=== PATIENT | female | born 1990 | race Caucasian/White ===

== ENCOUNTER 2020-05-08 10:31 | Outpatient (CLI) | payer OTHER, SELFPAY ==
--- NOTE | ~2020-05-08 | CT_ITS ---
EXAMINATION: CT brain wo con DATE: 05/08/2020 11:12 INDICATION: Headache and dizziness. Visual disturbances. TECHNIQUE: Computed tomography (CT) of the head was performed without intravenous contrast. The dose- length product was 605.33 mGy-cm. Automated exposure control and iterative reconstruction technique w ere employed. COMPARISON: CT dated 04/10/2018 FINDINGS: No acute intracranial hemorrhage, infarction, mass or mass effect. No ventriculomegaly or m idline shift. Basilar cisterns are patent. Paranasal sinuses and mastoids are pneumatized. No depress ed skull fractures. Normal chao-white differentiation. Midline sagittal images demonstrate a normal c orpus callosum and craniovertebral junction. IMPRESSION: 1. No acute intracranial abnormality. Reviewed, dictated and finalized at location B.
[2020-05-08 10:51] LABS: Basophils Absolute Auto 0.05 K/mm3 (0.00-0.10); Basophils Percent Auto 0.4 % (0.0-1.0); Eosinophils Absolute Auto 0.32 K/mm3 (0.02-0.50); Eosinophils Percent Auto 2.5 % (1.0-6.0); Hematocrit 39.2 % (35.0-49.0); Hemoglobin 12.9 g/dL (12.0-15.0); Immature Granulocyte Absolute 0.06 K/mm3 (0.00-0.00); Immature Granulocyte Percent A 0.5 % (0.0-0.0); Lymphocytes Absolute Auto 3.56 K/mm3 (1.10-4.50); Lymphocytes Percent Auto 27.9 % (18.0-42.0); Mean Corpuscular HGB Conc 32.9 g/dL (32.0-36.0); Mean Corpuscular Hemoglobin 30.2 pg (27.0-31.0); Mean Corpuscular Volume 91.8 fL (78.0-102.0); Mean Platelet Volume 9.9 fl (9.2-11.8); Monocytes Absolute Auto 1.56 K/mm3 (0.10-0.90); Monocytes Percent Auto 12.2 % (2.0-11.0); Neutrophils Absolute Auto 7.2 K/mm3 (1.7-7.2); Neutrophils Percent Auto 56.5 % (50.0-70.0); Platelet Count Result 410 K/mm3 (150-420); Red Blood Count 4.27 M/mm3 (4.20-5.40); Red Cell Distribution Width 13.9 % (11.6-14.4); White Blood Count 12.8 K/mm3 (4.8-10.8)
[2020-05-08 11:13] LABS: Partial Thromboplastin Time 30.1 SEC (22.3-31.6); Prothrombin Time 10.2 Seconds (9.64-11.0)
[2020-05-08 11:14] LABS: Anion Gap 10 mmol/L (8-16); Blood Urea Nitrogen 12 mg/dL (7-18); Calcium 9.3 mg/dL (8.5-10.1); Carbon Dioxide 25 mmol/L (21-32); Chloride 104 mmol/L (98-108); Estimated Glomerular Filt Rate > 60; Glucose 93 mg/dL (70-99); Osmolality Calculated 287 mOsm/kg (285-295); Potassium 4.3 mmol/L (3.5-5.1); Sodium 139 mmol/L (136-145)
[2020-05-08 12:44] LABS: Free T4 Free Thyroxine 0.82 ng/dL (0.76-1.46); Thyroid Stimulating Hormone 0.42 uIU/mL (0.36-3.74)
== END 2020-05-08 10:32 | disposition home or self-care (01) ==
PROVIDERS: PCP Family Medicine; Visit Provider Family Medicine
DX: R94.6 Abnormal results of thyroid function studies (principal); R04.0 Epistaxis; H53.451 Other localized visual field defect, right eye
CPT/HCPCS: 36415; 70450; 80048; 84439; 84443; 85025; 85610; 85730

== ENCOUNTER 2020-06-05 10:09 | Outpatient (CLI) | payer OTHER, SELFPAY ==
--- NOTE | 2020-06-05 10:35 | ECG_ITS ---
Measurements Intervals [place] Rate: 87 P: 4 OK: 153 QRS: 12 QRSD: 104 T: 8 QT: 373 QTc: 449 Interpretive Statements SINUS RHYTHM NORMAL ECG Electronically Signed On 06-05-2020 11:07:33 CDT by Hernando Kim D.O.
[2020-06-05 10:53] LABS: Cholesterol 184 mg/dL (0-200); HDL Direct 36 mg/dL (40-60); LDL Cholesterol Calculated 118 mg/dL (<130); Triglycerides 150 mg/dL (0-150)
[2020-06-05 10:55] LABS: Hemoglobin A1C 5.5 % (<5.7)
[2020-06-05 11:16] LABS: Free T4 Free Thyroxine Reflex 0.87 ng/dL (0.76-1.46); Thyroid Stimulating Hormone Reflex 0.26 u/IU/mL (0.36-3.74)
[2020-06-07 10:30] LABS: Vitamin D 25 Hydroxy 25 ng/mL (30-100)
[2020-06-10 16:07] LABS: Prealbumin 17 mg/dL (17-34)
== END 2020-06-05 10:10 | disposition home or self-care (01) ==
PROVIDERS: PCP Family Medicine
DX: J45.909 Unspecified asthma, uncomplicated (principal); E66.01 Morbid (severe) obesity due to excess calories; G47.33 Obstructive sleep apnea (adult) (pediatric); E28.2 Polycystic ovarian syndrome
CPT/HCPCS: 36415; 80061; 82306; 83036; 84134; 84439; 84443; 93005

== ENCOUNTER 2020-08-04 02:27 | Outpatient (CLI) | payer OTHER, SELFPAY ==
[2020-08-04 18:46] LABS: SARS-CoV-2 RNA PCR Negative
== END 2020-08-04 02:28 | disposition home or self-care (01) ==
LOC: ANHCOVIDDT 02:27
PROVIDERS: PCP Family Medicine; Visit Provider Internal Medicine Critical Care Medicine
DX: R68.89 Other general symptoms and signs (principal); Z20.828 Contact with and (suspected) exposure to other viral communicable diseases
CPT/HCPCS: 87635; C9803; U0003

== ENCOUNTER 2020-08-07 07:54 | Outpatient (CLI) | payer OTHER, SELFPAY ==
--- NOTE | 2020-09-13 09:15 | WPDSLEEPSTUD ---
Sleep Study Date of Study: 08/07/20 Ordering Provider: Keven Parrish MD Interpreting Physician: Maryann Dorsey MD Sleep Study Type: Polysomnogram Height: 1.8 m Weight: 132.449 kg Body Mass Index: 40.7 Ehrenberg: 4 Reason for Sleep Study Difficulty falling asleep and staying asleep Sleep History Dee Dee Saleh is a 30-year-old female with a history of difficulty falling asleep and staying asleep. She is tired on waking and is sleepy throughout the day. This is been going on for the last several months. There is no family history of a sleep difficulty. She constantly awakens at night with heartburn, belching or coughing. She does not snore and others do not tell her that she snores. She does not awaken from sleep feeling short of breath. She does not have difficulty sleeping with a cold, does not wake up gasping for breath at night, does not have breathing problems at night reported to her by others. She does not sweat excessively at night or notices her heart pounding or beating irregularly at night. She does not fall asleep during the day, fall asleep involuntarily or while driving. She does not fall asleep while exerting physical effort. She does not have loss of muscle tone was strong emotion and does not have daytime difficulties due to excessive sleepiness. She does not feel paralyzed on waking or falling asleep. She denies vivid dreamlike scenes upon awakening or falling asleep. She is not afraid to go to sleep. She does not have nightmares. She frequently remembers her dreams and frequently has racing thoughts. She really feels sad or depressed. She frequently has anxiety. She denies muscular tension. She does not notice parts of her body jerking at night and she does not kick at night. She does not have crawling and aching feelings in her legs at night and does not have leg pain at night. She denies morning jaw pain and she does not grind her teeth at night. She is not bothered by pain during the day, is not awakened by pain at night, does not wake up feeling stiff in the morning with sore or achy muscles, does not have pain in the neck and spine. She has fatigue, insomnia and headaches. She has gained weight in the last year. Normal bedtime is between 9 and 10:00 p.m. falling asleep after a while, waking up several times at night on average 5-10 minutes to urinate and get a drink of water. She wakes the morning between 6 and 7:00 a.m.. On weekends she stays awake later, going to bed between 10 and 12:00 p.m. and waking between 7 and 8:00 a.m.. She does get some recovery sleep on the weekends. She takes naps. A short nap is not refreshing. She is usually drowsy in the morning for 2 hours or longer. She feels better in the afternoon compared to the morning. Habits: Never smoked tobacco. No caffeine, alcohol or recreational drugs. [facility] Surgical History Surgical History (Updated 09/13/20 @ 09:23 by Maryann Dorsey MD) History of appendectomy History of cholecystectomy History of partial hysterectomy History of splenectomy History of tonsillectomy and adenoidectomy Family History Family History (Updated 12/03/17 @ 16:02 by DOCTOR UNKNOWN) Mother Family history of thyroid disease Family history of malignant neoplasm of cervix Sibling Diabetes mellitus Father Family history of alcoholism Social History Social History Smoking status: Former smoker Smoking end date: 08/25/13 Alcohol intake: current Medications Medications: BuSpar 300 mg daily for anxiety Pepcid 20 mg twice a day for hiatal hernia amitriptyline 100 mg at night to initiate sleep Sleep Procedure This test was performed using the [employer] multiple channel system including EOG, EEG, submental EMG, EKG, nasal and oral airflow using thermistors and nasal pressure sensors, chest and abdominal belts for body position data, and pulse oximetry. Video monitoring was also performed. The study was scored using [facility] guidelines.
[2020-09-13 10:39] VITALS: BMI 40.7
== END 2020-08-07 07:55 | disposition home or self-care (01) ==
LOC: ANHCSM 07:55
PROVIDERS: PCP Family Medicine; Visit Provider Family Medicine
DX: G47.33 Obstructive sleep apnea (adult) (pediatric) (principal)
CPT/HCPCS: 95810

== ENCOUNTER 2020-08-21 13:38 | Outpatient (CLI) | payer OTHER, SELFPAY ==
[2020-08-21 14:52] LABS: SARS-CoV-2 Ag Negative (Negative)
[2020-08-21 14:53] LABS: Influenza Control Valid (Valid)
[2020-08-22 18:44] LABS: SARS-CoV-2 RNA PCR Negative
== END 2020-08-21 13:39 | disposition home or self-care (01) ==
LOC: CHSLAB 13:41
PROVIDERS: PCP Family Medicine; Visit Provider Family Medicine
DX: R05 Cough (principal); Z20.828 Contact with and (suspected) exposure to other viral communicable diseases
CPT/HCPCS: 87426; 87635; 87804; C9803; U0003

== ENCOUNTER 2020-10-03 11:21 | Emergency (ER) | payer OTHER, SELFPAY ==
--- NOTE | ~2020-10-03 | CT_ITS ---
EXAMINATION: CT abdomen pelvis w con INDICATION: Left flank pain TECHNIQUE: Computed tomographic images of the abdomen and pelvis were obtained after the administrati on of 100 cc of Omnipaque 350 intravenous contrast. The dose-length product (DLP) was 1626.40 mGy-cm. Automated exposure control and iterative reconstruction technique were employed. COMPARISON: 05/06/2019 FINDINGS: The lung bases are clear. The heart size is normal. The gallbladder and spleen are surgical ly absent. The liver, pancreas, and adrenal glands are normal. The kidneys are unremarkable. No patho logically enlarged abdominal or pelvic lymph nodes are identified. There is no free intraperitoneal g as or evidence of bowel obstruction. There are changes of appendectomy and hysterectomy. IMPRESSION: 1. No CT correlate for the patient's symptoms. Reviewed, dictated and finalized at location A. COM ASSISTANT
--- NOTE | 2020-10-03 11:39 | ED.BACK ---
HPI - Back Pain/Injury General Chief Complaint: Back Pain/Injury Stated Complaint: Pain in back Time Seen by Provider: 10/03/20 11:39 Source: patient Mode of arrival: ambulatory Limitations: no limitations History of Present Illness HPI Narrative: A 30-year-old woman comes in today complaining of mid upper back pain and left-sided lower back pain that has been present for 2 days. Patient states that it is worse with movement. The pain is also worse when she urinates, pain with urination, and she noticed a small amount of blood in her urine today. She has a history of kidney stones and states that it feels like that. She denies nausea, vomiting, fever, abdominal pain, diarrhea, bruising or bleeding, cough or cold symptoms, chest pain or shortness of breath. MD elicited complaint: back pain Pertinent past history: kidney stones Onset (ago): day(s) (2) Timing: constant Severity: moderate Quality: dull Location: thoracic spine, left flank and left lower back Radiation: none Exacerbating factors: movement Relieving factors: other ( Urination) Associated symptoms: dysuria and hematuria Related Data Home Medications Medication Instructions Recorded Confirmed amitriptyline 100 mg PO HS 10/03/20 10/03/20 bupropion HCl 300 mg PO DAILY 10/03/20 10/03/20 calcium citrate 600 mg PO DAILY 10/03/20 10/03/20 famotidine 20 mg PO BID 10/03/20 10/03/20 [id number] carb-vit K 1 tablet PO DAILY 10/03/20 10/03/20 [Women's Multivitamin] Allergies Allergy/AdvReac Type Severity Reaction Status Date / Time dicyclomine Allergy Mild blurred Verified 05/06/19 15:58 vision, flushed, nausea adhesive tape Allergy Unknown RASH Verified 12/02/18 23:20 amoxicillin Allergy Unknown Verified 12/03/17 16:06 codeine Allergy Unknown HIVES Verified 12/02/18 23:20 doxycycline Allergy Unknown Verified 12/03/17 16:06 fentanyl Allergy Unknown Verified 12/03/17 16:07 ketorolac Allergy Unknown Verified 12/03/17 16:07 meperidine Allergy Unknown HIVES N&V Verified 12/02/18 23:20 methocarbamol Allergy Unknown HIVES, N&V Verified 04/10/19 23:20 Penicillins Allergy Unknown HIVES, N&V Verified 12/02/18 23:20 sulfamethizole Allergy Unknown Verified 12/03/17 16:07 sulfamethoxazole Allergy Unknown HIVES, N&V Verified 08/12/18 05:18 tramadol Allergy Unknown Verified 12/03/17 16:06 trimethoprim Allergy Unknown Verified 12/03/17 16:07 valdecoxib Allergy Unknown HIVES, N&V Verified 12/02/18 23:20 NSAIDS (Non-Steroidal AdvReac Intermediate UNABLE TO Verified 12/02/18 23:20 Anti-Inflamma HAVE DUE TO SPLEENECTOMY-NO NSAIDS Review of Systems Constitutional: Constitutional: Denies chills, Denies fever(s) and Denies weakness ENT: Denies nasal congestion and Denies sore throat Cardiovascular: Cardiovascular: Denies chest pain and Denies radiating jaw, neck or arm pain Respiratory: Respiratory: Denies cough and Denies dyspnea Gastrointestinal: Gastrointestinal: Reports abdominal pain, Denies diarrhea, Denies nausea and Denies vomiting Genitourinary: Genitourinary: Reports hematuria and Reports dysuria Musculoskeletal: Musculoskeletal: Reports back pain, Denies arthralgias and Denies joint swelling Integumentary/Breasts: Skin/Breast: Denies pruritus, Denies erythema and Denies rash Neurologic: Denies vertigo, Denies dizziness and Denies syncope Hematologic/Lymphatic: Hematologic/Lymphatic: Denies easy bleeding and Denies easy bruising Allergic/Immunologic: Allergic/Immunologic: Denies lip swelling and Denies throat swelling PMFSH Past Medical History Medical History Anxiety Chronic ITP (idiopathic thrombocytopenia) Depression Gastroesophageal reflux disease Polycystic ovary disease Snoring Surgical History Surgical History History of appendectomy History of cholecystectomy History of partial hysterectomy
[2020-10-03 11:44] VITALS: BP 122/85; PULSE 99; RESP 18; TEMP 36.5; O2SAT 97
[2020-10-03 12:10] LABS: Basophils Absolute Auto 0.05 K/mm3 (0.00-0.10); Basophils Percent Auto 0.4 % (0.0-1.0); Eosinophils Absolute Auto 0.29 K/mm3 (0.02-0.50); Eosinophils Percent Auto 2.4 % (1.0-6.0); Hematocrit 39.8 % (35.0-49.0); Hemoglobin 13.2 g/dL (12.0-15.0); Immature Granulocyte Absolute 0.04 K/mm3 (0.00-0.00); Immature Granulocyte Percent A 0.3 % (0.0-0.0); Lymphocytes Absolute Auto 2.88 K/mm3 (1.10-4.50); Lymphocytes Percent Auto 23.9 % (18.0-42.0); Mean Corpuscular HGB Conc 33.2 g/dL (32.0-36.0); Mean Corpuscular Hemoglobin 30.2 pg (27.0-31.0); Mean Corpuscular Volume 91.1 fL (78.0-102.0); Mean Platelet Volume 10.4 fl (9.2-11.8); Monocytes Absolute Auto 1.34 K/mm3 (0.10-0.90); Monocytes Percent Auto 11.1 % (2.0-11.0); Neutrophils Absolute Auto 7.4 K/mm3 (1.7-7.2); Neutrophils Percent Auto 61.9 % (50.0-70.0); Platelet Count Result 431 K/mm3 (150-420); Red Blood Count 4.37 M/mm3 (4.20-5.40); Red Cell Distribution Width 13.9 % (11.6-14.4)
[2020-10-03 12:13] LABS: Add Urine Microscopic? NO; Appearance Urine Clear (Clear); Bilirubin Urine Negative (Negative); Blood Urine Negative (Negative); Color Urine Yellow (Yellow); Glucose Urine UA Negative (Negative); Ketones Urine Negative (Negative); Leukocyte Esterase Ur Negative (Negative); Nitrate Urine Negative (Negative); Protein Urine Negative (Negative); Specific Grav Ur 1.025 (1.010-1.020); Urobilinogen Urine 0.2 mg/dL (0.2-1.0)
[2020-10-03 12:27] LABS: Alanine Aminotransferase 25 U/L (14-59); Albumin Level 3.7 g/dL (3.4-5.0); Alkaline Phosphatase 90 U/L (46-116); Anion Gap 13 mmol/L (8-16); Aspartate Amino Transferase 11 U/L (15-37); Bilirubin,Total 0.2 mg/dL (0.00-1.00); Blood Urea Nitrogen 20 mg/dL (7-18); CRP 1.5 mg/dL (0.0-0.9); Carbon Dioxide 24 mmol/L (21-32); Chloride 100 mmol/L (98-108); Estimated CRCL calculation 124 ml/min; Estimated Glomerular Filt Rate > 60; Glucose 101 mg/dL (70-99); Osmolality Calculated 286 mOsm/kg (285-295); Potassium 4.1 mmol/L (3.5-5.1); Sodium 137 mmol/L (136-145); Total Protein 8.1 g/dL (6.4-8.2)
[2020-10-03 12:32] LABS: Lactic Acid Reflex 1.1 mmol/L (0.4-2.0)
[2020-10-03] MEDS: ONDANSETRON INJ 4 MG/2 ML VIAL IV PUSH (13:08)
[2020-10-03] MEDS: MORPHINE SULFATE (*CRX) 2 MG/ML INJ IV PUSH ×2 (13:09→13:56)
[2020-10-03] MEDS: SODIUM CHLORIDE 0.9% IV 500 ML 999 ML IV CONT (13:10)
[2020-10-03 14:08] VITALS: BP 112/84; PULSE 95; RESP 16; O2SAT 100
== END 2020-10-03 14:10 | disposition home or self-care (01) ==
PROVIDERS: Emergency Provider Emergency Medicine; PCP Family Medicine
DX: M54.6 Pain in thoracic spine (principal); Z87.891 Personal history of nicotine dependence
CPT/HCPCS: 36415; 74177; 80053; 81003; 83605; 85025; 86140; 87040; 87086; 87088; 96361; 96374; 96375; 96376; 99283; 99284; J2270; J2405; J7040; Q9967

== ENCOUNTER 2020-11-01 12:38 | Outpatient (CLI) | payer OTHER, SELFPAY | END 2020-11-01 12:39 | disposition home or self-care (01) | PROVIDERS: PCP Family Medicine | DX: Z72.0 Tobacco use (principal) | CPT/HCPCS: 36415; 80323; G0480 ==

== ENCOUNTER 2020-11-12 10:38 | Outpatient (CLI) | payer OTHER, SELFPAY | END 2020-11-12 10:39 | disposition home or self-care (01) | PROVIDERS: PCP Family Medicine | DX: Z72.0 Tobacco use (principal) | CPT/HCPCS: 36415; 80323; G0480 ==

== ENCOUNTER 2020-12-19 10:14 | Emergency (ER) | payer OTHER, SELFPAY ==
[2020-12-19 10:20] VITALS: BP 144/88; PULSE 96; RESP 18; TEMP 36.8; O2SAT 100
--- NOTE | 2020-12-19 10:29 | ED.DENTAL ---
HPI - Dental/Oral General Chief complaint: Dental/Oral Stated complaint: tooth pain Source: patient and RN notes reviewed Mode of arrival: ambulatory Limitations: no limitations History of Present Illness MD Complaint: tooth pain Location: Tooth # (18) Onset (ago): day(s) (1) Duration: intermittent Severity: severe Relieving factors: nothing Exacerbating factors: chewing Context: history of dental caries Treatment prior to arrival: none Related Data Home Medications Medication Instructions Recorded Confirmed amitriptyline 100 mg PO HS 10/03/20 12/19/20 bupropion HCl 300 mg PO DAILY 10/03/20 12/19/20 calcium citrate 600 mg PO DAILY 10/03/20 12/19/20 famotidine 20 mg PO BID 10/03/20 12/19/20 ampicillin 500 mg PO BID 12/19/20 12/19/20 spironolactone 50 mg PO BID 12/19/20 12/19/20 tretinoin 1 applic TOPICAL DAILY 12/19/20 12/19/20 Allergies Allergy/AdvReac Type Severity Reaction Status Date / Time dicyclomine Allergy Mild blurred Verified 05/06/19 15:58 vision, flushed, nausea adhesive tape Allergy Unknown RASH Verified 12/02/18 23:20 amoxicillin Allergy Unknown Verified 12/03/17 16:06 codeine Allergy Unknown HIVES Verified 12/02/18 23:20 doxycycline Allergy Unknown Verified 12/03/17 16:06 fentanyl Allergy Unknown Verified 12/03/17 16:07 ketorolac Allergy Unknown Verified 12/03/17 16:07 meperidine Allergy Unknown HIVES N&V Verified 12/02/18 23:20 methocarbamol Allergy Unknown HIVES, N&V Verified 12/02/18 23:20 Penicillins Allergy Unknown HIVES, N&V Verified 12/02/18 23:20 sulfamethizole Allergy Unknown Verified 12/03/17 16:07 sulfamethoxazole Allergy Unknown HIVES, N&V Verified 08/12/18 05:18 tramadol Allergy Unknown Verified 12/03/17 16:06 trimethoprim Allergy Unknown Verified 12/03/17 16:07 valdecoxib Allergy Unknown HIVES, N&V Verified 12/02/18 23:20 NSAIDS (Non-Steroidal AdvReac Intermediate UNABLE TO Verified 12/02/18 23:20 Anti-Inflamma HAVE DUE TO SPLEENECTOMY-NO NSAIDS Review of Systems Review of Systems: All systems reviewed & are unremarkable except as noted in HPI and below Constitutional: Constitutional: Denies chills and Denies fever(s) PMFSH Past Medical History Medical History Anxiety Chronic ITP (idiopathic thrombocytopenia) Depression Gastroesophageal reflux disease Polycystic ovary disease Snoring Surgical History Surgical History History of appendectomy History of cholecystectomy History of partial hysterectomy History of splenectomy History of tonsillectomy and adenoidectomy Family History Family History Mother Family history of thyroid disease Family history of malignant neoplasm of cervix Sibling Diabetes mellitus Father Family history of alcoholism Social History Social History Smoking status: Former smoker Smoking end date: 08/25/13 Alcohol intake: current Exam Const: General: no acute distress and alert Nutritional Appearance: well nourished and obese Orientation/consciousness: patient oriented x3 Other: Female nurse in room during exam. HENMT: Head: normal to inspection Teeth image: 1. Swelling, tender, no fluctuance Eyes: Conjunctivae: conjunctivae normal Pupils: Equal, round and reactive pupils present EOM: EOMs intact bilaterally Neck: Neck: normal visual inspection and no lymphadenopathy Resp: Effort & Inspection: normal respiratory effort Auscultation: clear to auscultation bilaterally Cardio: Rate: regular rate Rhythm: regular rhythm GI: GI Palp: Yes Soft to palpation and No Tenderness to palpation present (GI) Auscultation: normal bowel sounds Back/Spine/Pelvis: Cervical Spine: cervical ROM normal Thoracic/Lumbar Spine: thoraco-lumbar ROM normal Neuro: General: patient oriented
[2020-12-19 10:50] VITALS: RESP 16
== END 2020-12-19 10:50 | disposition home or self-care (01) ==
PROVIDERS: Emergency Provider Emergency Medicine; PCP Family Medicine
DX: K08.89 Other specified disorders of teeth and supporting structures (principal)
CPT/HCPCS: 99283

== ENCOUNTER 2021-01-03 13:40 | Outpatient (CLI) | payer OTHER, SELFPAY ==
--- NOTE | 2021-01-03 13:55 | ECG_ITS ---
Measurements Intervals [place] Rate: 83 P: 21 SD: 124 QRS: 49 QRSD: 102 T: 40 QT: 382 QTc: 451 Interpretive Statements SINUS RHYTHM NORMAL ECG Electronically Signed On 01-03-2021 14:09:54 CDT by Hernando Kim D.O.
== END 2021-01-03 13:41 | disposition home or self-care (01) ==
LOC: CHSCARD 13:43
PROVIDERS: PCP Family Medicine
DX: Z98.84 Bariatric surgery status (principal)
CPT/HCPCS: 93005

== ENCOUNTER 2021-02-01 07:18 | Emergency (ER) | payer OTHER, SELFPAY ==
[2021-02-01 07:35] VITALS: BP 106/77; PULSE 111; RESP 16; TEMP 36.6; O2SAT 100
--- NOTE | 2021-02-01 07:58 | ED.EYEPROB ---
HPI - Eye Problem General Chief complaint: Eye Problems Stated complaint: possible chemical burn from eyelash glue Source: patient Mode of arrival: ambulatory Limitations: no limitations History of Present Illness HPI Narrative: this is a 30-year-old female presents after she had eyelashes placed bilaterally and was exposed to a chemical irritant from the eyelash glue causing bilateral conjunctival redness irritation burning, with some currently some mild blurry vision with normal visual acuity with some tearing otherwise no fever or chills. chief complaint: eye pain and eye redness Onset (ago): hour(s) Onset description: gradual Duration: constant Location: both eyes Eye Symptoms: burning, redness and pain Place: home and other Mechanism: chemical exposure Severity: moderate Related Data Home Medications Medication Instructions Recorded Confirmed amitriptyline 100 mg PO HS 10/03/20 02/01/21 bupropion HCl 300 mg PO DAILY 10/03/20 02/01/21 calcium citrate 600 mg PO DAILY 10/03/20 02/01/21 spironolactone 50 mg PO BID 12/19/20 02/01/21 omeprazole 20 mg PO DAILY 02/01/21 02/01/21 Allergies Allergy/AdvReac Type Severity Reaction Status Date / Time dicyclomine Allergy Mild blurred Verified 05/06/19 15:58 vision, flushed, nausea adhesive tape Allergy Unknown RASH Verified 12/02/18 23:20 amoxicillin Allergy Unknown Verified 12/03/17 16:06 codeine Allergy Unknown HIVES Verified 12/02/18 23:20 doxycycline Allergy Unknown Verified 12/03/17 16:06 fentanyl Allergy Unknown Verified 12/03/17 16:07 ketorolac Allergy Unknown Verified 12/03/17 16:07 meperidine Allergy Unknown HIVES N&V Verified 12/02/18 23:20 methocarbamol Allergy Unknown HIVES, N&V Verified 12/02/18 23:20 Penicillins Allergy Unknown HIVES, N&V Verified 12/02/18 23:20 sulfamethizole Allergy Unknown Verified 12/03/17 16:07 sulfamethoxazole Allergy Unknown HIVES, N&V Verified 08/12/18 05:18 tramadol Allergy Unknown Verified 12/03/17 16:06 trimethoprim Allergy Unknown Verified 12/03/17 16:07 valdecoxib Allergy Unknown HIVES, N&V Verified 12/02/18 23:20 NSAIDS (Non-Steroidal AdvReac Intermediate UNABLE TO Verified 12/02/18 23:20 Anti-Inflamma HAVE DUE TO SPLEENECTOMY-NO NSAIDS Review of Systems Review of Systems: All systems reviewed & are unremarkable except as noted in HPI and below PMFSH Past Medical History Medical History Anxiety Chronic ITP (idiopathic thrombocytopenia) Depression Gastroesophageal reflux disease Polycystic ovary disease Snoring Surgical History Surgical History History of appendectomy History of cholecystectomy History of partial hysterectomy History of splenectomy History of tonsillectomy and adenoidectomy Family History Family History Mother Family history of thyroid disease Family history of malignant neoplasm of cervix Sibling Diabetes mellitus Father Family history of alcoholism Social History Social History Smoking status: Former smoker Smoking end date: 08/25/13 Alcohol intake: current Exam Const: General: no acute distress and alert Orientation/consciousness: patient oriented x3 Eyes: Conjunctivae: conjunctivae normal ( injection here today larkin and redness) Pupils: Equal, round and reactive pupils present Direct Ophthalmoscopy: photophobia Neck: Neck: normal visual inspection, no lymphadenopathy and no meningeal signs Chest: Chest palpation & inspection: normal inspection of the chest Cardio: Rate: regular rate Rhythm: regular rhythm GI: Auscultation: normal bowel sounds : General: Yes no CVA tenderness Urinary Catheter: Urinary Catheter: patent and draining Back/Spine/Pelvis: Back: no CVA tenderness Skin: General skin exam:
[2021-02-01] MEDS: NEOMYCIN/POLYMYXIN/DEXAMETH OP SUSP 5 ML BTL 1 DROP EACH EYE (08:10)
== END 2021-02-01 08:16 | disposition home or self-care (01) ==
PROVIDERS: Emergency Provider Emergency Medicine; PCP Family Medicine
DX: H10.213 Acute toxic conjunctivitis, bilateral (principal)
CPT/HCPCS: 99282; 99283; A9270

== ENCOUNTER 2021-04-16 09:11 | Outpatient (CLI) | payer OTHER, SELFPAY ==
[2021-04-16 09:40] LABS: SARS-CoV-2 Ag Negative (Negative)
== END 2021-04-16 09:12 | disposition home or self-care (01) ==
LOC: CHSLAB 09:14
PROVIDERS: PCP Family Medicine; Visit Provider Family Medicine
DX: J00 Acute nasopharyngitis [common cold] (principal); Z20.822 Contact with and (suspected) exposure to COVID-19
CPT/HCPCS: 87426; C9803

== ENCOUNTER → 2021-04-17 09:17 | Outpatient (CLI) | payer OTHER, SELFPAY ==
[2021-04-17 19:42] LABS: SARS-CoV-2 RNA PCR Positive
== END ==
PROVIDERS: PCP Family Medicine; Visit Provider Family Medicine
DX: U07.1 COVID-19 (principal)
CPT/HCPCS: C9803; U0003; U0005

== ENCOUNTER 2021-12-04 08:20 | Outpatient (CLI) | payer OTHER, SELFPAY ==
--- NOTE | ~2021-12-04 | MR_ITS ---
EXAMINATION: MR knee RT wo con DATE: 12/04/2021 09:25 INDICATION: Right knee pain. TECHNIQUE: Magnetic resonance imaging (MRI) of the right knee was performed without intravenous contr ast. Sequences included axial PD-weighted FS FSE, coronal PD-weighted FSE and PD-weighted FS FSE, sag ittal PD-weighted FSE, and sagittal T2-weighted FS FSE. COMPARISON: None. FINDINGS: Medial compartment: Medial meniscus is normal. Medial compartment cartilage is normal. Lateral compartment: Lateral meniscus is normal. Lateral compartment cartilage is normal. Patellofemoral compartment: There is shallow partial-thickness cartilage loss of patellar lateral facet. Trochlear cartilage is n ormal. Ligaments and tendons: The anterior and posterior cruciate ligaments are normal. Medial collateral ligament and lateral crispin ateral ligament complex are normal. Patellar tendon is normal. Fluid: There is no knee joint effusion. IMPRESSION: 1. Mild patellar chondrosis. Reviewed, dictated and finalized at location A.
== END 2021-12-04 08:21 | disposition home or self-care (01) ==
LOC: CHSIMG 08:23
PROVIDERS: PCP Family Medicine; Visit Provider Family Medicine
DX: M25.561 Pain in right knee (principal)
CPT/HCPCS: 73721

== ENCOUNTER 2021-12-18 08:12 | Outpatient (CLI) | payer OTHER, SELFPAY ==
--- NOTE | ~2021-12-18 | XR_ITS ---
XR knee RT min 4V DATE: 12/18/2021 08:48 INDICATION: Bilateral knee pain TECHNIQUE: 4 views COMPARISON: 12/04/2021 MRI right knee FINDINGS: No fracture or dislocation or joint effusion. No periosteal reaction or bone destruction. J oint spaces are well preserved. No radiopaque intra-articular loose body or chondrocalcinosis. Joint spaces are well preserved. IMPRESSION: Negative Reviewed, dictated and finalized at location A. IMPRESSION: Negative
--- NOTE | ~2021-12-18 | XR_ITS ---
XR knee LT min 4V DATE: 12/18/2021 08:48 INDICATION: Bilateral knee pain TECHNIQUE: 4 views COMPARISON: None FINDINGS: No fracture or dislocation or joint effusion. No periosteal reaction or bone destruction. S light periarticular spurring of the patella. Joint spaces are well preserved. No radiopaque intra-art icular loose body or chondrocalcinosis. No periosteal reaction or bone destruction. IMPRESSION: Slight periarticular spurring of the patella consistent with slight patellofemoral osteoa rthritis Reviewed, dictated and finalized at location A. IMPRESSION: Slight periarticular spurring of the patella consistent with slight patellofemoral osteoarthritis
== END 2021-12-18 08:13 | disposition home or self-care (01) ==
LOC: CHSIMG 08:14
PROVIDERS: PCP Family Medicine; Visit Provider Orthopaedic Surgery
DX: M25.562 Pain in left knee (principal); M25.561 Pain in right knee
CPT/HCPCS: 73564

== ENCOUNTER 2022-01-14 13:39 | Outpatient (CLI) | payer OTHER, SELFPAY ==
[2022-01-14 13:55] LABS: Basophils Absolute Auto 0.05 K/mm3 (0.00-0.10); Basophils Percent Auto 0.5 % (0.0-1.0); Eosinophils Absolute Auto 0.24 K/mm3 (0.02-0.50); Eosinophils Percent Auto 2.2 % (1.0-6.0); Hematocrit 37.5 % (35.0-49.0); Hemoglobin 12.3 g/dL (12.0-15.0); Immature Granulocyte Absolute 0.03 K/mm3 (0.00-0.00); Immature Granulocyte Percent A 0.3 % (0.0-0.0); Lymphocytes Absolute Auto 2.87 K/mm3 (1.10-4.50); Lymphocytes Percent Auto 26.3 % (18.0-42.0); Mean Corpuscular HGB Conc 32.8 g/dL (32.0-36.0); Mean Corpuscular Hemoglobin 31.9 pg (27.0-31.0); Mean Corpuscular Volume 97.4 fL (78.0-102.0); Mean Platelet Volume 10.1 fl (9.2-11.8); Monocytes Absolute Auto 1.16 K/mm3 (0.10-0.90); Monocytes Percent Auto 10.6 % (2.0-11.0); Neutrophils Absolute Auto 6.6 K/mm3 (1.7-7.2); Neutrophils Percent Auto 60.1 % (50.0-70.0); Platelet Count Result 382 K/mm3 (150-420); Red Blood Count 3.85 M/mm3 (4.20-5.40); Red Cell Distribution Width 12.7 % (11.6-14.4); White Blood Count 10.9 K/mm3 (4.8-10.8)
[2022-01-14 14:37] LABS: Alanine Aminotransferase 23 U/L (14-59); Albumin Level 3.6 g/dL (3.4-5.0); Alkaline Phosphatase 116 U/L (46-116); Anion Gap 7 mmol/L (8-16); Aspartate Amino Transferase 13 U/L (15-37); Bilirubin,Total 0.2 mg/dL (0.00-1.00); Blood Urea Nitrogen 11 mg/dL (7-18); CRP < 0.5 mg/dL (0.0-0.9); Calcium 8.6 mg/dL (8.5-10.1); Carbon Dioxide 26 mmol/L (21-32); Chloride 104 mmol/L (98-108); Estimated Glomerular Filt Rate > 60; Folic Acid 6.8 ng/mL (8.6->20); Glucose 92 mg/dL (70-99); Osmolality Calculated 283 mOsm/kg (285-295); Potassium 3.5 mmol/L (3.5-5.1); Sodium 137 mmol/L (136-145); Total Protein 7.5 g/dL (6.4-8.2); Vitamin B12 245 pg/mL (193-986)
[2022-01-14 14:58] LABS: Erythrocyte Sedimentation Rate 34 mm/hr (0-15)
[2022-01-16 17:17] LABS: ANA Cascade Screen Negative (Negative)
[2022-01-17 14:59] LABS: Methylmalonic Acid 234 nmol/L (87-318)
[2022-01-21 14:55] LABS: Vitamin B2 37.1 nmol/L (6.2-39.0)
== END 2022-01-14 13:40 | disposition home or self-care (01) ==
LOC: CHSLAB 13:41
PROVIDERS: PCP Family Medicine; Visit Provider Family Medicine
DX: R21 Rash and other nonspecific skin eruption (principal); G62.9 Polyneuropathy, unspecified
CPT/HCPCS: 36415; 80053; 82607; 82746; 83921; 84252; 85025; 85652; 86038; 86140

== ENCOUNTER 2022-04-04 12:45 | Outpatient (CLI) | payer OTHER, SELFPAY ==
[2022-04-04 13:26] LABS: Strep Group A RT-PCR Negative (Negative)
[2022-04-04 13:39] LABS: Influenza A QL RT-PCR Negative (Negative); Influenza B QL RT-PCR Negative (Negative); SARS-CoV-2 RNA PCR Negative (Negative)
== END 2022-04-04 12:46 | disposition home or self-care (01) ==
LOC: CHSLAB 12:48
PROVIDERS: PCP Family Medicine; Visit Provider Family Medicine
DX: J06.9 Acute upper respiratory infection, unspecified (principal); Z20.822 Contact with and (suspected) exposure to COVID-19
CPT/HCPCS: 87502; 87651; C9803; U0003; U0005

== ENCOUNTER 2022-05-09 17:16 | Outpatient (CLI) | payer OTHER, SELFPAY ==
[2022-05-09 17:34] LABS: Appearance Urine Slightly Cloudy (Clear); Bilirubin Urine Negative (Negative); Color Urine Light Yellow (Yellow); Glucose Urine UA Negative (Negative); Ketones Urine Negative (Negative); Leukocyte Esterase Ur 3+ (Negative); Nitrate Urine Positive (Negative); Protein Urine Negative (Negative); Urobilinogen Urine 0.2 mg/dL (0.2-1.0); pH Urine 6.5 (5.0-8.0)
[2022-05-09 17:39] LABS: Add Urine Microscopic? YES; Blood Urine Trace-Intact (Negative)
[2022-05-09 17:40] LABS: Bacteria Urine 3+ /hpf; RBC Urine 0-2 /hpf (0-2); Squamous Epithelial Cell Urine Moderate /hpf (Few); WBC Urine 21-30 /hpf (0-3)
== END 2022-05-09 17:17 | disposition home or self-care (01) ==
LOC: CHSLAB 17:18
PROVIDERS: PCP Family Medicine; Visit Provider Family Medicine
DX: N39.0 Urinary tract infection, site not specified (principal)
CPT/HCPCS: 81001; 87077; 87086; 87088; 87186

== ENCOUNTER 2022-08-06 12:37 | Outpatient (CLI) | payer OTHER, SELFPAY ==
[2022-08-06 13:16] LABS: Strep Group A RT-PCR NOT DETECTED (Negative)
[2022-08-06 13:27] LABS: Influenza A QL RT-PCR Positive (Negative); Influenza B QL RT-PCR Negative (Negative); SARS-CoV-2 RNA PCR Negative (Negative)
[2022-08-06 13:29] LABS: RSV RNA, RT-PCR Negative (Negative)
== END 2022-08-06 12:38 | disposition home or self-care (01) ==
PROVIDERS: PCP Family Medicine; Visit Provider Family Medicine
DX: J06.9 Acute upper respiratory infection, unspecified (principal); Z20.822 Contact with and (suspected) exposure to COVID-19
CPT/HCPCS: 87637; 87651

== ENCOUNTER 2022-10-10 07:14 | Outpatient (CLI) | payer OTHER, SELFPAY ==
[2022-10-10 08:05] LABS: Hemoglobin A1C 5.2 % (<5.7)
[2022-10-10 08:38] LABS: Vitamin B12 482 pg/mL (193-986)
[2022-10-13 13:44] LABS: Insulin Level Total 3.6 uIU/mL (<=19.6)
== END 2022-10-10 07:15 | disposition home or self-care (01) ==
LOC: CHSLAB 07:18
PROVIDERS: PCP Family Medicine
DX: E53.8 Deficiency of other specified B group vitamins (principal); Z98.84 Bariatric surgery status; Z86.32 Personal history of gestational diabetes; R73.01 Impaired fasting glucose; E66.3 Overweight
CPT/HCPCS: 36415; 82607; 83036; 83525

== ENCOUNTER 2022-10-29 07:09 | Outpatient (CLI) | payer OTHER, SELFPAY | END 2022-10-29 07:10 | disposition home or self-care (01) | LOC: CHSIMG 07:10 | PROVIDERS: PCP Family Medicine; Visit Provider Nurse Practitioner | DX: N39.0 Urinary tract infection, site not specified (principal) | CPT/HCPCS: 99199 ==

== ENCOUNTER 2022-10-30 06:52 | Outpatient (CLI) | payer OTHER, SELFPAY | END 2022-10-30 06:53 | disposition home or self-care (01) | LOC: CHSIMG 06:53 | PROVIDERS: PCP Family Medicine; Visit Provider Nurse Practitioner | DX: N39.0 Urinary tract infection, site not specified (principal) | CPT/HCPCS: 99199 ==

== ENCOUNTER 2022-11-19 12:14 | Outpatient (CLI) | payer OTHER, SELFPAY ==
[2022-11-19 12:42] LABS: Appearance Urine Clear (Clear); Bilirubin Urine Negative (Negative); Blood Urine Trace-Intact (Negative); Glucose Urine UA Trace (Negative); Ketones Urine Negative (Negative); Leukocyte Esterase Ur Trace (Negative); Nitrate Urine Positive (Negative); Protein Urine Negative (Negative); Specific Grav Ur >= 1.030 (1.010-1.020)
[2022-11-19 12:56] LABS: Add Urine Microscopic? YES; Color Urine Dark Orange (Yellow)
[2022-11-19 12:57] LABS: Bacteria Urine 1+ /hpf; Squamous Epithelial Cell Urine Few /hpf (Few); WBC Urine 0-3 /hpf (0-3)
== END 2022-11-19 12:15 | disposition home or self-care (01) ==
LOC: CHSLAB 12:16
PROVIDERS: PCP Family Medicine; Visit Provider Nurse Practitioner
DX: R30.0 Dysuria (principal); R30.9 Painful micturition, unspecified
CPT/HCPCS: 81001; 87086

== ENCOUNTER 2022-11-25 14:12 | Outpatient (CLI) | payer OTHER, SELFPAY ==
--- NOTE | ~2022-11-25 | CT_ITS ---
EXAMINATION: CT abdomen pelvis wo/w con DATE: 11/25/2022 15:13 INDICATION: Urinary tract infection, site not specified. TECHNIQUE: Computed tomography (CT) of the abdomen and pelvis was performed without and with intraven ous contrast using a total of 130 mL Omnipaque-350 intravenous contrast with a double-bolus technique for simultaneous opacification of the renal parenchyma and renal collecting system. Automated exposu re control and iterative reconstruction technique were employed. The dose-length product was 1035.12 mGy-cm. COMPARISON: CT abdomen and pelvis 12/01/2020 FINDINGS: The visualized portions of the lung bases are clear without pneumonia or pleural effusion. There is m ild pectus excavatum. The liver is normal. There are changes of cholecystectomy. There are changes of splenectomy. There are changes of gastric bypass procedure. The pancreas and adrenal glands are norm al. There is no urolithiasis. The kidneys are normal. The ureters are not well visualized opacified d istally, but are normal. The bladder is normal. There are no dilated loops of bowel. There are change s of appendectomy. There are no pathologically enlarged lymph nodes. There is no free intraperitoneal fluid. There is mild thoracic and lumbar spondylosis. IMPRESSION: 1. Normal urinary tract. Reviewed, dictated and finalized at location A. IMPRESSION: 1. Normal urinary tract.
== END 2022-11-25 14:13 | disposition home or self-care (01) ==
LOC: ANHIMG 14:12
PROVIDERS: PCP Family Medicine; Visit Provider Nurse Practitioner
DX: N39.0 Urinary tract infection, site not specified (principal)
CPT/HCPCS: 74178; Q9967

== ENCOUNTER 2022-12-09 10:32 | Emergency (ER) | payer OTHER, SELFPAY ==
--- NOTE | ~2022-12-09 | CT_ITS ---
EXAMINATION: CT abdomen pelvis wo con DATE: 12/09/2022 11:54 INDICATION: Low back pain, difficulty urinating. Nausea and vomiting. Known kidney stone. TECHNIQUE: Computed tomography (CT) of the abdomen and pelvis was performed without intravenous contr ast. Automated exposure control and iterative reconstruction technique were employed. Exam dose: 262 .67 mGy-cm total exam DLP. COMPARISON: November 25, 2022 CT abdomen pelvis FINDINGS: The lung bases are clear. Normal heart size. No pericardial or pleural effusion. Status post cholecystectomy. Status post splenectomy. Status post gastric bypass procedure. The liver, pancreas, and adrenal glands and kidneys are unremarkable on this limited noncontrast exam ination. No urinary tract calculus or hydroureteronephrosis is detected. Normal caliber of the abdominal aorta. No intraperitoneal or retroperitoneal or pelvic mass lesion or adenopathy or ascites. Status post appendectomy. No bowel obstruction or intraperitoneal free air. Included skeletal structures are unremarkable. IMPRESSION: No urinary tract calculus or hydroureteronephrosis Status post cholecystectomy Status post splenectomy Status post gastric bypass surgery; no bowel obstruction or free air Status post appendectomy. Reviewed, dictated and finalized at [facility]. Reviewed, dictated and finalized at [facility].
[2022-12-09 10:39] VITALS: BP 122/75; PULSE 115; RESP 16; TEMP 36.8; O2SAT 100
[2022-12-09 11:26] LABS: Basophils Percent Auto 0.5 % (0.2-1.2); Eosinophils Absolute Auto 0.2 K/mm3 (0-0.3); Hematocrit 34.1 % (37.0-47.0); Hemoglobin 11.2 g/dL (12.0-15.0); Immature Granulocyte Absolute 0.02 K/mm3 (0.00-0.031); Immature Granulocyte Percent A 0.3 % (0-0.5); Lymphocytes Absolute Auto 2.31 K/mm3 (0.9-3.2); Lymphocytes Percent Auto 29.4 % (18.3-44.2); Mean Corpuscular HGB Conc 32.8 g/dl (32-36); Mean Corpuscular Hemoglobin 31.4 pg (26-34); Mean Corpuscular Volume 95.5 fl (80-100); Mean Platelet Volume 11.3 fl (7.4-10.4); Monocytes Absolute Auto 0.9 K/mm3 (0.1-0.6); Monocytes Percent Auto 10.8 % (2.6-8.5); Neutrophils Absolute Auto 4.5 K/mm3 (1.3-6.7); Platelet Count Result 281 k/mm3 (150-375); Red Blood Count 3.57 M/mm3 (4.2-5.4); Red Cell Distribution Width 12.7 % (11.5-14.5); White Blood Count 7.9 K/mm3 (4.5-10.0)
[2022-12-09 11:32] LABS: Alanine Aminotransferase 58 U/L (6-35); Albumin Level 4.3 g/dL (3.5-5.1); Alkaline Phosphatase 98 U/L (38-126); Anion Gap 9 mmol/L (8-16); Aspartate Amino Transferase 32 U/L (14-36); Bilirubin,Total 0.5 mg/dL (0.2-1.3); Blood Urea Nitrogen 8 mg/dL (7-17); Calcium 8.3 mg/dL (8.4-10.2); Carbon Dioxide 23 mmol/L (22-30); Chloride 108 mmol/L (98-107); Estimated CRCL calculation 153 ml/min; Estimated Glomerular Filt Rate > 60; Glucose 69 mg/dL (65-110); Potassium 3.1 mmol/L (3.4-5.0); Sodium 140 mmol/L (137-145)
[2022-12-09 11:40] LABS: Appearance Urine Turbid (Clear); Bacteria Urine 3+ /hpf; Bilirubin Urine Negative (Negative); Blood Urine Negative (Negative); Calcium Oxalate Crystals Urine Present /hpf; Color Urine Dark Yellow (Yellow); Glucose Urine UA Negative (Negative); Ketones Urine Negative (Negative); Leukocyte Esterase Ur Negative LEU/UL (Negative); Nitrate Urine Negative (Negative); Protein Urine Negative (Negative); Specific Grav Ur 1.034 (1.001-1.035); Squamous Epithelial Cell Urine Moderate /hpf (Few); pH Urine 5.5 (5.0-9.0)
--- NOTE | 2022-12-09 11:41 | ED.FEMALEGU ---
HPI - Female Genitourinary General Chief complaint: Urogenital-Female <Manuel Mcclain PA-C - Last Filed: 12/09/22 16:33> Stated complaint: kidney stone, back pain, difficulty urinating <Manuel Mcclain PA-C - Last Filed: 12/09/22 16:33> Time Seen by Provider: 12/09/22 10:46 <Manuel Mcclain PA-C - Last Filed: 12/09/22 16:33> History of Present Illness HPI Narrative: This is a 32-year-old female with PMH of ITP, anxiety, GERD, PCOS who presents the ED with chief complaint of right flank pain and difficulty urinating ongoing for the past week. Pain rated an 8 out of 10 and radiates into the right abdomen. Patient states that she was seen last week at another hospital and diagnosed with a kidney stone that is 6 x 2 mm. She was given Flomax and Percocets. States she has been having trouble initiating urination and Percocets have not been controlling pain. Also feels nauseous, reports 2 episodes of emesis. She called her urologist and was recommended to go to the ER. She said if she continued to have problems that her urologist mentioned doing a lithotripsy. Past abdominal surgical history of appendectomy, cholecystectomy, gastric bypass, hysterectomy, splenectomy. <Manuel Mcclain PA-C - Last Filed: 12/09/22 16:33> Related Data Home medications: Home Medications Medication Instructions Recorded Confirmed omeprazole 20 mg capsule,delayed 20 mg PO DAILY 02/01/21 02/01/21 release acetaminophen 500 mg tablet 500 mg PO Q6H PRN 01/16/22 (Tylenol Extra Strength) amitriptyline 150 mg tablet 150 mg PO QHS 01/16/22 bupropion HCl 300 mg 24 hr tablet, 150 mg PO DAILY 01/16/22 extended release <Manuel Mcclain PA-C - Last Filed: 12/09/22 16:33> Allergies/Adverse reactions: Allergies Allergy/AdvReac Type Severity Reaction Status Date / Time dicyclomine Allergy Mild blurred Verified 12/18/21 09:19 vision, flushed, nausea adhesive tape Allergy Unknown RASH Verified 12/18/21 09:19 amoxicillin Allergy Unknown Unknown Verified 12/18/21 09:19 codeine Allergy Unknown HIVES Verified 01/16/22 09:32 doxycycline Allergy Unknown Unknown Verified 12/18/21 09:19 fentanyl Allergy Unknown Unknown Verified 12/18/21 09:19 ketorolac Allergy Unknown Unknown Verified 12/18/21 09:19 meperidine Allergy Unknown HIVES N&V Verified 12/18/21 09:19 methocarbamol Allergy Unknown HIVES, N&V Verified 12/18/21 09:19 Penicillins Allergy Unknown HIVES, N&V Verified 12/18/21 09:19 sulfamethizole Allergy Unknown Unknown Verified 12/18/21 09:19 sulfamethoxazole Allergy Unknown HIVES, N&V Verified 12/18/21 09:19 tramadol Allergy Unknown Unknown Verified 12/18/21 09:19 trimethoprim Allergy Unknown Unknown Verified 12/18/21 09:19 valdecoxib Allergy Unknown HIVES, N&V Verified 12/18/21 09:19 NSAIDS (Non-Steroidal AdvReac Intermediate UNABLE TO Verified 01/16/22 09:32 Anti-Inflamma HAVE DUE TO SPLEENECTOMY-NO NSAIDS <Manuel Mcclain PA-C - Last Filed: 12/09/22 16:33> Review of Systems Review of Systems: CONSTITUTIONAL: Denies fever, chills, or sweats. EYES: Denies visual changes, redness, or discharge. ENT: Denies rhinorrhea, congestion, sore throat, or otalgia. CARDIOVASCULAR: Denies chest pain, palpitations, or edema. RESPIRATORY: Denies cough or dyspnea. GASTROINTESTINAL: See HPI GENITOURINARY: Denies dysuria or hematuria. SKIN: Denies rash or itching. MUSCULOSKELETAL: Denies back pain, joint pain, or myalgia. NEUROLOGIC: Denies headache, numbness, dizziness, or weakness. PSYCHIATRIC: Denies anxiety or depression. <Manuel Mcclain PA-C - Last Filed: 12/09/22 16:33> [facility] Past Medical History Medical History: Medical History (Updated 12/09/22 @ 13:41 by Manuel Mcclain PA-C) Anxiety Chronic ITP (idiopathic thrombocytopenia) Depression Gastroesophageal reflux disease Polycystic ovary disease Snoring <Manuel Mcclain PA-C - Last Filed: 12/09/22 16:33> Surgical History Surgical History
[2022-12-09 11:43] LABS: Add Urine Microscopic? YES
[2022-12-09] MEDS: ONDANSETRON INJ 4 MG/2 ML VIAL IV PUSH (12:02)
[2022-12-09] MEDS: SODIUM CHLORIDE 0.9% IV 1,000 ML 999 ML IV CONT (12:02)
[2022-12-09] MEDS: MORPHINE SULFATE (*CRX) 4 MG/ML INJ IV PUSH (12:08)
[2022-12-09] MEDS: METOCLOPRAMIDE HCL INJ 10 MG/2 ML VIAL IV PUSH (13:17)
[2022-12-09] MEDS: MORPHINE SULFATE (*CRX) 2 MG/ML INJ IV PUSH (13:18)
[2022-12-09 14:07] VITALS: BP 102/64; PULSE 77; RESP 16; O2SAT 100
== END 2022-12-09 14:07 | disposition home or self-care (01) ==
PROVIDERS: Emergency Provider Physician Assistant; PCP Family Medicine
DX: R10.9 Unspecified abdominal pain (principal); E28.2 Polycystic ovarian syndrome; K21.9 Gastro-esophageal reflux disease without esophagitis; D69.3 Immune thrombocytopenic purpura; F41.9 Anxiety disorder, unspecified; F32.A Depression, unspecified; Z98.84 Bariatric surgery status; Z90.49 Acquired absence of other specified parts of digestive tract; Z90.81 Acquired absence of spleen; Z90.711 Acquired absence of uterus with remaining cervical stump; Z87.891 Personal history of nicotine dependence
CPT/HCPCS: 36415; 74176; 80053; 81001; 81025; 85025; 87086; 96361; 96374; 96375; 96376; 99284; J2270; J2405; J2765; J7030

== ENCOUNTER 2023-01-08 12:54 | Outpatient (CLI) | payer OTHER, SELFPAY ==
--- NOTE | ~2023-01-08 | XR_ITS ---
XR lumbar spine 2-3V 01/08/2023 13:22 Indication: Back pain Procedure: 3 views lumbar spine Comparison: No prior studies for comparison. Findings: There is mild disc narrowing at L4-5 and L5-S1. No acute fracture, subluxation or spondylol isthesis. Normal lumbar lordosis. Mild levocurvature of the spine. Sacral foramen are symmetric. Pedi cles intact. There are cholecystectomy clips. Impression: 1: Mild lumbar spondylosis. Reviewed, dictated and finalized at [facility]. Impression: 1: Mild lumbar spondylosis.
[2023-01-08 13:17] LABS: Appearance Urine Clear (Clear); Bilirubin Urine Negative (Negative); Blood Urine Negative (Negative); Color Urine Light Yellow (Yellow); Glucose Urine UA Negative (Negative); Ketones Urine Negative (Negative); Leukocyte Esterase Ur Negative (Negative); Nitrate Urine Negative (Negative); Protein Urine Negative (Negative)
[2023-01-08 13:23] LABS: Add Urine Microscopic? NO
[2023-01-08 13:56] LABS: Influenza A QL RT-PCR Negative (Negative); Influenza B QL RT-PCR Negative (Negative); SARS-CoV-2 RNA PCR Negative (Negative)
[2023-01-08 14:01] LABS: Strep Group A RT-PCR DETECTED (Negative)
== END 2023-01-08 12:55 | disposition home or self-care (01) ==
LOC: CHSLAB 12:56
PROVIDERS: PCP Family Medicine; Visit Provider Family Medicine
DX: M54.50 Low back pain, unspecified (principal); N20.0 Calculus of kidney; M43.06 Spondylolysis, lumbar region; J02.0 Streptococcal pharyngitis
CPT/HCPCS: 72100; 81003; 87636; 87651

== ENCOUNTER 2023-01-16 13:59 | Outpatient (CLI) | payer OTHER, SELFPAY | END 2023-01-16 14:00 | disposition home or self-care (01) | LOC: CHSIMG 14:01 | PROVIDERS: PCP Family Medicine; Visit Provider Nurse Practitioner | DX: R10.9 Unspecified abdominal pain (principal) | CPT/HCPCS: 99199 ==

== ENCOUNTER 2023-01-17 12:27 | Outpatient (CLI) | payer OTHER, SELFPAY | END 2023-01-17 12:28 | disposition home or self-care (01) | PROVIDERS: PCP Family Medicine; Visit Provider Nurse Practitioner | DX: R10.9 Unspecified abdominal pain (principal) | CPT/HCPCS: 99199 ==

== ENCOUNTER 2023-01-22 12:10 | Outpatient (CLI) | payer OTHER, SELFPAY ==
--- NOTE | ~2023-01-22 | CT_ITS ---
Non-contrast CT scan of the Abdomen and Pelvis Clinical indication: Abdominal pain Technique: 2.5 mm axial scans were obtained through the abdomen and pelvis without intravenous or or al contrast. Dose reduction technique was used on this scan by utilizing automated exposure control a nd iterative reconstruction technique. The dose-length product (DLP) was 600.59 mGy-cm. COMPARISON: 12/09/2022 Findings: Images through the lung bases reveal no abnormalities. There is no evidence of renal or ureteral calculi. The kidneys and the ureters are nondilated. The liver, pancreas, and adrenals appear normal. Cholecystectomy clips are present. There is evidence of prior splenectomy. There is no aortic aneurysm. There is no evidence of bowel obstruction. There is evidence of prior bariatric surgery. Images through the pelvis were performed. There is no evidence of ascites or lymphadenopathy. Urinary bladder unremarkable. No pelvic mass seen. Impression: No acute abnormality seen. Postsurgical changes, as above. Reviewed, dictated and finalized at [facility]. Impression: No acute abnormality seen. Postsurgical changes, as above.
== END 2023-01-22 12:11 | disposition home or self-care (01) ==
LOC: CHSIMG 12:11
PROVIDERS: PCP Family Medicine; Visit Provider Nurse Practitioner
DX: R10.9 Unspecified abdominal pain (principal); Z98.890 Other specified postprocedural states
CPT/HCPCS: 74176

== ENCOUNTER 2023-03-11 07:16 | Outpatient (CLI) | payer OTHER, SELFPAY ==
[2023-03-11 07:48] LABS: Basophils Absolute Auto 0.04 K/mm3 (0.00-0.10); Basophils Percent Auto 0.5 % (0.0-1.0); Eosinophils Absolute Auto 0.18 K/mm3 (0.02-0.50); Eosinophils Percent Auto 2.3 % (1.0-6.0); Hematocrit 35.1 % (35.0-49.0); Hemoglobin 11.4 g/dL (12.0-15.0); Immature Granulocyte Absolute 0.02 K/mm3 (0.00-0.00); Immature Granulocyte Percent A 0.3 % (0.0-0.0); Lymphocytes Absolute Auto 2.25 K/mm3 (1.10-4.50); Lymphocytes Percent Auto 28.9 % (18.0-42.0); Mean Corpuscular HGB Conc 32.5 g/dL (32.0-36.0); Mean Corpuscular Hemoglobin 31.6 pg (27.0-31.0); Mean Corpuscular Volume 97.2 fL (78.0-102.0); Mean Platelet Volume 10.4 fl (9.2-11.8); Monocytes Absolute Auto 0.86 K/mm3 (0.10-0.90); Neutrophils Absolute Auto 4.4 K/mm3 (1.7-7.2); Platelet Count Result 337 K/mm3 (150-420); Red Blood Count 3.61 M/mm3 (4.20-5.40); Red Cell Distribution Width 13.3 % (11.6-14.4); White Blood Count 7.8 K/mm3 (4.8-10.8)
[2023-03-11 09:01] LABS: Alanine Aminotransferase 23 U/L (14-59); Albumin Level 3.6 g/dL (3.4-5.0); Alkaline Phosphatase 92 U/L (46-116); Anion Gap 7 mmol/L (8-16); Aspartate Amino Transferase 15 U/L (15-37); Bilirubin,Total 0.2 mg/dL (0.00-1.00); Blood Urea Nitrogen 9 mg/dL (7-18); Calcium 8.7 mg/dL (8.5-10.1); Carbon Dioxide 29 mmol/L (21-32); Chloride 106 mmol/L (98-108); Cholesterol 134 mg/dL (0-200); Estimated Glomerular Filt Rate > 60; Ferritin 16 ng/mL (8-252); Folic Acid 17.1 ng/mL (8.6->20); Glucose 84 mg/dL (70-99); HDL Direct 51 mg/dL (40-60); Iron 59 ug/dL (50-170); LDL Cholesterol Calculated 66 mg/dL (<130); Magnesium 2.1 mg/dL (1.8-2.4); Osmolality Calculated 291 mOsm/kg (285-295); Percent Iron Saturation 17 % (12-57); Potassium 3.9 mmol/L (3.5-5.1); Sodium 142 mmol/L (136-145); Total Protein 6.8 g/dL (6.4-8.2); Triglycerides 83 mg/dL (0-150); Vitamin B12 397 pg/mL (193-986)
[2023-03-13 13:05] LABS: Vitamin D 25 Hydroxy 31 ng/mL (30-100)
[2023-03-13 23:15] LABS: Methylmalonic Acid 109 nmol/L (87-318)
[2023-03-16 03:19] LABS: Vitamin B1 14 nmol/L (8-30)
== END 2023-03-11 07:17 | disposition home or self-care (01) ==
LOC: CHSLAB 07:19
PROVIDERS: PCP Family Medicine
DX: K21.9 Gastro-esophageal reflux disease without esophagitis (principal); K90.9 Intestinal malabsorption, unspecified; G47.33 Obstructive sleep apnea (adult) (pediatric); Z09 Encounter for follow-up examination after completed treatment for conditions other than malignant neoplasm; Z98.84 Bariatric surgery status; E53.8 Deficiency of other specified B group vitamins
CPT/HCPCS: 36415; 80053; 80061; 82306; 82607; 82728; 82746; 83540; 83550; 83735; 83921; 84425; 85025

== ENCOUNTER 2023-04-01 17:13 | Outpatient (CLI) | payer OTHER, SELFPAY | END 2023-04-01 17:14 | disposition home or self-care (01) | LOC: CHSLAB 17:15 | PROVIDERS: PCP Family Medicine; Visit Provider Nurse Practitioner | DX: N39.0 Urinary tract infection, site not specified (principal) | CPT/HCPCS: 87086; 87088 ==

== ENCOUNTER 2023-06-11 09:17 | Outpatient (CLI) | payer OTHER, SELFPAY ==
[2023-06-11 10:03] LABS: Influenza A QL RT-PCR Negative (Negative); Influenza B QL RT-PCR Negative (Negative); SARS-CoV-2 RNA PCR Negative (Negative)
== END 2023-06-11 09:18 | disposition home or self-care (01) ==
PROVIDERS: PCP Family Medicine; Visit Provider Family Medicine
DX: J06.9 Acute upper respiratory infection, unspecified (principal)
CPT/HCPCS: 87636

== ENCOUNTER 2023-07-15 17:14 | Outpatient (CLI) | payer OTHER, SELFPAY ==
[2023-07-15 17:31] LABS: Hematocrit 36.2 % (35.0-49.0); Hemoglobin 11.7 g/dL (12.0-15.0); Mean Corpuscular HGB Conc 32.3 g/dL (32.0-36.0); Mean Corpuscular Hemoglobin 31.9 pg (27.0-31.0); Mean Corpuscular Volume 98.6 fL (78.0-102.0); Mean Platelet Volume 10.4 fl (9.2-11.8); Platelet Count Result 322 K/mm3 (150-420); Red Blood Count 3.67 M/mm3 (4.20-5.40); Red Cell Distribution Width 13.3 % (11.6-14.4); White Blood Count 9.1 K/mm3 (4.8-10.8)
[2023-07-15 17:53] LABS: Band Neutrophils Percent 1 % (0-6); Basophils Percent Manual 0 % (0-1); Eosinophils Absolute Manual 0.09 K/mm3 (0.02-0.5); Eosinophils Percent Manual 1 % (1-6); Lymphocytes Absolute Manual 2.45 K/mm3 (1.1-4.5); Lymphocytes Percent Manual 27 % (18-44); Monocytes Absolute Manual 1.63 K/mm3 (0.1-0.90); Monocytes Percent Manual 18 % (3-9); Neutrophils Absolute Manual 4.91 K/mm3 (1.7-7.2); Neutrophils Percent Manual 53 % (46-73); Platelet Estimate Adequate (Adequate); Total Cells Counted 100
[2023-07-15 17:59] LABS: Strep Group A RT-PCR NOT DETECTED (Negative)
[2023-07-15 18:06] LABS: Influenza A QL RT-PCR Negative (Negative); Influenza B QL RT-PCR Negative (Negative); SARS-CoV-2 RNA PCR Positive (Negative)
== END 2023-07-15 17:15 | disposition home or self-care (01) ==
LOC: CHSLAB 17:16
PROVIDERS: PCP Family Medicine; Visit Provider Family Medicine
DX: D69.3 Immune thrombocytopenic purpura (principal); J06.9 Acute upper respiratory infection, unspecified
CPT/HCPCS: 36415; 85025; 87636; 87651

== ENCOUNTER 2023-11-03 13:39 | Outpatient (CLI) | payer OTHER, SELFPAY ==
[2023-11-03 14:16] LABS: Strep Group A RT-PCR NOT DETECTED (Negative)
[2023-11-03 14:28] LABS: SARS-CoV-2 RNA PCR Negative (Negative)
[2023-11-03 14:31] LABS: Influenza A QL RT-PCR Negative (Negative); Influenza B QL RT-PCR Negative (Negative)
== END 2023-11-03 13:40 | disposition home or self-care (01) ==
LOC: CHSLAB 13:41
PROVIDERS: PCP Family Medicine; Visit Provider Family Medicine
DX: J06.9 Acute upper respiratory infection, unspecified (principal)
CPT/HCPCS: 87636; 87651

== ENCOUNTER 2024-03-31 10:05 | Outpatient (CLI) | payer OTHER, SELFPAY ==
[2024-03-31 10:41] LABS: Hematocrit 36.8 % (35.0-49.0); Hemoglobin 12.5 g/dL (12.0-15.0); Mean Corpuscular Hemoglobin 31.9 pg (27.0-31.0); Mean Corpuscular Volume 93.9 fL (78.0-102.0); Mean Platelet Volume 11.1 fl (9.2-11.8); Platelet Count Result 309 K/mm3 (150-420); Red Blood Count 3.92 M/mm3 (4.20-5.40); Red Cell Distribution Width 13.1 % (11.6-14.4); White Blood Count 9.3 K/mm3 (4.8-10.8)
[2024-03-31 10:54] LABS: Band Neutrophils Percent 0 % (0-6); Eosinophils Absolute Manual 0.46 K/mm3 (0.02-0.50); Eosinophils Percent Manual 5 % (1-6); Lymphocytes Absolute Manual 3.16 K/mm3 (1.1-4.5); Lymphocytes Percent Manual 34 % (18-44); Monocytes Absolute Manual 0.65 K/mm3 (0.1-0.90); Monocytes Percent Manual 7 % (3-9); Neutrophils Absolute Manual 5.02 K/mm3 (1.7-7.2); Neutrophils Percent Manual 54 % (46-73); Platelet Estimate Adequate (Adequate); Total Cells Counted 100
[2024-03-31 11:08] LABS: Hemoglobin A1C 5.5 % (<5.7)
[2024-03-31 11:35] LABS: Alanine Aminotransferase 22 U/L (14-59); Albumin Level 3.7 g/dL (3.4-5.0); Alkaline Phosphatase 95 U/L (46-116); Anion Gap 12 mmol/L (4-12); Aspartate Amino Transferase 12 U/L (15-37); Bilirubin,Total 0.6 mg/dL (0.00-1.00); Blood Urea Nitrogen 10 mg/dL (7-18); Calcium 8.5 mg/dL (8.5-10.1); Carbon Dioxide 25 mmol/L (21-32); Chloride 105 mmol/L (98-108); Cholesterol 150 mg/dL (0-200); Estimated Glomerular Filt Rate > 60; Ferritin 20 ng/mL (8-252); Glucose 84 mg/dL (70-99); HDL Direct 58 mg/dL (40-60); Iron 158 ug/dL (50-170); LDL Cholesterol Calculated 80 mg/dL (<130); Magnesium 1.9 mg/dL (1.8-2.4); Osmolality Calculated 292 mOsm/kg (285-295); Percent Iron Saturation 44 % (12-57); Potassium 3.9 mmol/L (3.5-5.1); Sodium 142 mmol/L (136-145); Total Protein 7.3 g/dL (6.4-8.2); Triglycerides 58 mg/dL (0-150); Vitamin B12 532 pg/mL (193-986)
[2024-03-31 11:36] LABS: Folic Acid > 20.0 ng/mL (8.6->20)
[2024-04-01 23:39] LABS: Zinc 68 mcg/dL (60-130)
[2024-04-02 01:18] LABS: Vitamin D 25 Hydroxy 37 ng/mL (30-100)
[2024-04-05 10:34] LABS: Vitamin B1 17 nmol/L (8-30)
== END 2024-03-31 10:06 | disposition home or self-care (01) ==
LOC: CHSLAB 10:08
PROVIDERS: PCP Family Medicine
DX: Z00.00 Encounter for general adult medical examination without abnormal findings (principal); K21.9 Gastro-esophageal reflux disease without esophagitis; K90.9 Intestinal malabsorption, unspecified; Z98.84 Bariatric surgery status; Z86.32 Personal history of gestational diabetes
CPT/HCPCS: 36415; 80053; 80061; 82306; 82525; 82607; 82728; 82746; 83036; 83540; 83550; 83735; 84425; 84630; 85025

== ENCOUNTER 2024-12-29 15:09 | Outpatient (CLI) | payer OTHER, SELFPAY ==
--- NOTE | ~2024-12-29 | US_ITS ---
EXAM: PELVIC ULTRASOUND HISTORY: pelvic pain COMPARISON: 06/18/2018. Reference is also made to the CT examination of the abdomen and pelvis performed 01/22/2023 and dating back to 05/06/2019. FINDINGS: UTERUS: Surgically absent. RIGHT OVARY: The right ovary is unremarkable in echogenicity and size measuring 1.1 x 1.5 x 1.0 cm. Dopplerable flow is identified. LEFT OVARY: The left ovary is unremarkable in echogenicity and size measuring 1.2 x 1.6 x 1.7 cm Dopplerable flow is identified. No free fluid is identified within the pelvis. IMPRESSION: Unremarkable sonographic evaluation of the female pelvis, as detailed above. Reviewed, dictated and finalized at [facility].
== END 2024-12-29 15:10 | disposition home or self-care (01) ==
LOC: GOSHIMG 15:11
PROVIDERS: PCP Obstetrics & Gynecology; Visit Provider Obstetrics & Gynecology
DX: R10.2 Pelvic and perineal pain (principal)
CPT/HCPCS: 76830; 76856

== ENCOUNTER 2025-01-24 10:10 | Emergency (ER) | payer OTHER, SELFPAY ==
--- NOTE | ~2025-01-24 | XR_ITS ---
EXAMINATION: SACRUM/COCCYX DATE: 01/24/2025 10:48 INDICATION: Tailbone pain TECHNIQUE: Three views sacrum/coccyx FINDINGS: Lumbar spine dated 01/24/2025 There is no displaced fracture of the sacrum. The coccyx demonstrates overall normal morphology with out acute angulation.There are surgical changes in the pelvis. IMPRESSION: 1. No acute displaced osseous abnormality of the sacrum. Suspicion for occult or nondisplaced sacral fracture can either be evaluated with CT or MRI. 2. Grossly normal morphology to the coccyx without acute angulation. However, due to the wide range of normal variation of the coccyx, acute injury would be best evaluated by clinical examination and patient's symptoms. Reviewed, dictated and finalized at location A.
--- NOTE | ~2025-01-24 | XR_ITS ---
EXAMINATION: XR lumbar spine 2-3V DATE: 01/24/2025 10:48 INDICATION: Fall with tailbone pain radiating to the right leg TECHNIQUE: Anteroposterior and lateral views of the lumbar spine, and cone-down lateral view of the l umbosacral junction were obtained. COMPARISON: None. FINDINGS: Negligible lumbar levocurvature with mild rotational component. Sagittal alignment is normal. Vertebr al body heights are normal. No evident fracture. Mild disc height loss at L3-L4 and L4-L5. Mild osteo arthritis at a few of the profiled lumbar facet joints. Mild osteoarthritis of the bilateral sacral i liac joints. Sacral arches are intact. Postoperative changes in the upper abdomen with surgical clips and suture lines in the left epigastric region and additional suture line in the right upper quadran t. IMPRESSION: 1. Mild lumbar spondylosis. Reviewed, dictated and finalized at location A. IMPRESSION: 1. Mild lumbar spondylosis.
[2025-01-24 10:12] VITALS: BP 155/85; PULSE 107; RESP 16; TEMP 36.6; O2SAT 100
--- NOTE | 2025-01-24 10:14 | ED_ITS ---
HPI - Back Pain/Injury General Chief Complaint: Back Pain/Injury Stated Complaint: pain in tailbone Time Seen by Provider: 01/24/25 10:14 Source: patient Mode of arrival: ambulatory Limitations: no limitations History of Present Illness HPI Narrative: patient is a 34-year-old female with a lower back injury after a chair swing broke and she dropped 2-3 feet onto her lower buttocks and back. no other injuries. She has lower back pain from the mid lumbar to coccyx region. She is having some right lower extremity shooting pains as well. Patient has ITP and prior gastric bypass. patient had hysterectomy. MD elicited complaint: back pain and back injury Pertinent past history: other ( ITP, gastric bypass) Onset (ago): day(s) ( 1) Timing: constant Severity: moderate Pain scale (0-10): 5 Similar Symptoms Previously: No Quality: sharp Location: lumbar spine and sacrum ( down to the coccyx) Radiation: other ( Lower back to coccyx) Exacerbating factors: movement Relieving factors: immobilization Context: fall Associated symptoms: denies other symptoms Treatments prior to arrival: acetaminophen Work related injury: No Related Data Home Medications ?Medication ?Instructions ?Recorded ?Confirmed ?Last Taken ?Type omeprazole 20 mg capsule,delayed 20 mg PO DAILY 02/01/21 02/01/21 Unknown History release acetaminophen 500 mg tablet 500 mg PO Q6H PRN 01/16/22 Unknown History (Tylenol Extra Strength) amitriptyline 150 mg tablet 150 mg PO QHS 01/16/22 Unknown History bupropion HCl 300 mg 24 hr tablet, 150 mg PO DAILY 01/16/22 Unknown History extended release Allergies Allergy/AdvReac Type Severity Reaction Status Date / Time amoxicillin Allergy Severe Hives Verified 01/24/25 10:12 ketorolac Allergy Severe Hives Verified 01/24/25 10:12 dicyclomine Allergy Mild blurred Verified 01/24/25 10:12 vision, flushed, nausea adhesive tape Allergy Unknown RASH Verified 01/24/25 10:12 codeine Allergy Unknown HIVES Verified 01/24/25 10:12 doxycycline Allergy Unknown Unknown Verified 01/24/25 10:12 fentanyl Allergy Unknown Unknown Verified 01/24/25 10:12 meperidine Allergy Unknown HIVES N&V Verified 01/24/25 10:12 methocarbamol Allergy Unknown HIVES, N&V Verified 01/24/25 10:12 Penicillins Allergy Unknown HIVES, N&V Verified 01/24/25 10:12 sulfamethizole Allergy Unknown Unknown Verified 01/24/25 10:12 sulfamethoxazole Allergy Unknown HIVES, N&V Verified 01/24/25 10:12 tramadol Allergy Unknown Hives Verified 01/24/25 10:12 trimethoprim Allergy Unknown Unknown Verified 01/24/25 10:12 valdecoxib Allergy Unknown HIVES, N&V Verified 01/24/25 10:12 NSAIDS (Non-Steroidal AdvReac Intermediate UNABLE TO Verified 01/24/25 10:12 Anti-Inflamma HAVE DUE TO SPLEENECTOMY-NO NSAIDS Review of Systems Review of Systems: All systems reviewed & are unremarkable except as noted in HPI and below Constitutional: Constitutional: Reports no additional constitutional complaints Eyes: Eyes: Reports no additional eye complaints ENT: Reports system reviewed and no additional complaints, except as documented Cardiovascular: Cardiovascular: Reports no additional cardiovascular complaints Respiratory: Respiratory: Reports no additional respiratory complaints Gastrointestinal: Gastrointestinal: Reports no additional gastrointestinal complaints Genitourinary: Genitourinary: Reports no additional female genitourinary complaints Musculoskeletal: Musculoskeletal: Reports no additional musculoskeletal complaints Integumentary/Breasts: Skin/Breast: Reports system reviewed and no additional complaints, except as docu Neurologic: Reports system reviewed and no additional complaints, except as documented Psychiatric: Psychiatric: Reports no additional psychiatric complaints Endocrine: Endocrine: Reports no additional endocrine complaints Hematologic/Lymphatic: Hematologic/Lymphatic: Reports no additional hematologic/lymphatic complaints Allergic/Immunologic: Allergic/Immunologic: Reports no additional allergic/immunologic complaints [facility] Past Medical History Medical History Snoring Polycystic ovary disease Chronic ITP (idiopathic thrombocytopenia) Gastroesophageal reflux disease Anxiety Depression Surgical History Surgical History History of ear surgery Tubes in ears History of hernia surgery Nuchal hernia History of gastric bypass History of splenectomy History of tonsillectomy and adenoidectomy History of partial hysterectomy History of cholecystectomy History of appendectomy Family History Family History Mother Family history of thyroid disease Family history of malignant neoplasm of cervix Sibling Diabetes mellitus Father Family history of alcoholism Other Asthma Depression Family history of disorders of kidney and ureter Family history of high cholesterol Family history of stroke Hypertension Social History Social History Years smoked: 10 Smoking status: Former smoker Smoking end date: 08/25/11 Alcohol intake: never Occupation/Education: occupation 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 [employer] Gender identity (if verbalized by the patient): Female Exam Const: General: healthy appearing Nutritional Appearance: well nourished Orientation/consciousness: patient oriented x3 HENMT: Head: normal to inspection Ears: external ears normal Face/Nose/Sinus: Normal external nose present Eyes: Conjunctivae: conjunctivae normal Pupils: Equal, round and reactive pupils present EOM: EOMs intact bilaterally Neck: Neck: normal visual inspection Chest: Chest palpation & inspection: normal inspection of the chest Resp: Effort & Inspection: normal respiratory effort and not labored Auscultation: clear to auscultation bilaterally and no crackles Cardio: Rate: regular rate Rhythm: regular rhythm Heart sounds: no murmurs GI: Inspection: non-distended GI Palp: Yes Soft to palpation and No Tenderness to palpation present (GI) Auscultation: normal bowel sounds : General: Yes bladder normal to palpation Back/Spine/Pelvis: Back: no CVA tenderness Other: tender lumbar spine all the way down to the coccyx Skin: General skin exam: normal color Rashes: no rashes Wounds: no wounds Neuro: General: patient oriented x3, moves all extremities, no meningeal signs, no focal motor deficits and CN's II-XI intact bilaterally Cranial nerves: Yes Nystagmus not present Speech: normal speech Gait exam (Neuro): Normal gait present Other: equivocal sciatica on the right lower extremity Course Vital Signs Vital signs: Vital Signs Temperature 36.6 C 01/24/25 10:12 Pulse Rate 107 H 01/24/25 10:12 Respiratory Rate 16 01/24/25 10:12 Blood Pressure 155/85 H 01/24/25 10:12 Pulse Oximetry 100 01/24/25 10:12 Oxygen Delivery Room Air 01/24/25 10:12 Temperature 36.6 C 01/24/25 10:12 Pulse Rate 107 H 01/24/25 10:12 Respiratory Rate 16 01/24/25 10:12 Blood Pressure 155/85 H 01/24/25 10:12 Pulse Oximetry 100 01/24/25 10:12 Oxygen Delivery Room Air 01/24/25 10:12 MDM - Back Pain/Injury MDM Narrative Medical decision making narrative: patient is a 34-year-old female with a 2-3 foot fall onto her lower back and spine with significant pain. Will start with x-rays at this time. She can take hydrocodone with her allergy list. She can take prednisone with her allergy list. Imaging Data Attestation: I personally reviewed and interpreted this imaging study as foll ows: Radiologist's impression: Lumbar spine x-ray was negative for acute process sacrum x-ray was negative for acute process coccyx x-ray was negative for acute process Discharge Plan Discharge Clinical Impression: Fall, Lumbosacral radiculopathy Patient Disposition: Home Condition: Stable Instructions: Lumbar Radiculopathy (ED) Patient Language: Mexican Prescriptions: New prednisone 20 mg tablet 40 mg PO DAILY 4 Days Qty: 8 0RF hydrocodone-acetaminophen 5-325 mg tablet 1 tablet PO Q8H PRN (Reason: pain) Qty: 20 0RF Rx Instructions: 1-2 tabs per dose No Action bupropion HCl 300 mg tablet extended release 24 hr 150 mg PO DAILY omeprazole 20 mg capsule,delayed release(DR/EC) 20 mg PO DAILY acetaminophen [Tylenol Extra Strength] 500 mg tablet 500 mg PO Q6H PRN amitriptyline 150 mg tablet 150 mg PO QHS ondansetron 4 mg tablet,disintegrating 4 mg PO Q8H PRN (Reason: nausea and vomiting) Qty: 10 0RF Follow-up/Referrals: Keven Parrish MD [Primary Care Provider] - Time of Disposition: 11:30
--- OUTSIDE RECORDS SUMMARY | 2025-01-24 10:52 | XMS_ITS | Encounter Summary ---
Author Organization [facility] Address [address] [place] [address] Care Team Providers Care Machine Buffer Name Role Phone Melquiades Gates MD Primary Care Provider [phone] Keven Parrish MD Primary Care Provider Encounter Details Date Type Department Care Team (Late st Contact Info) Description 05/08/2020 [facility] [address] [place] [address] Annette Hall DO [address] [place] [address] Social History Tobacco Use Types Packs/Day Years Used Date Smoking Tobacco: Former Cigarettes Q uit: 2012 Smokeless Tobacco: Never Alcohol Use Standard Drinks/Week Comments No 0 (1 standard drink = 0.6 oz pur e alcohol) Comments No Sex and Gender Information Value Date Recorded Sex Assigned at Not on file 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 Answer Date of Assessment Author No 05/21/2019 1:01 PM Ronda Cota RN * Is person blind or have serious difficulty seeing? Answer Date of Assessment Author No 05/21/2019 1:01 PM Ronda Cota RN * Does person have serious difficulty walking/climbing stairs? Answer Date of Assessment Author No 05/21/2019 1:01 PM Ronda Cota RN * Does person have difficulty dressing/bathing? Answer Date of Assessment Author No 05/21/2019 1:01 PM CDT Ronda Atwood RN * Does person have difficulty doing errands alone? Answer Date of Assessment Author No 05/21/2019 1:01 PM CDT Ronda Atwood RN documented as of this encounter Mental Status * Does person have difficulty concentrating/remembering/making decisions? Answer Entry Date Author No 05/21/2019 1:01 PM CDT Ronda Atwood RN documented in this encounter Miscellaneous Notes * Telephone Encounter - Annette Hall DO - 05/08/2020 8:03 PM CDT Just a call from Ms. Saleh who reports she has been having nose bleeds for the last 3 days. She reports they last as long as 20 min or more and she is unable to stop it. She also started having severe VASQUEZ today She was seen by PCP who sent her to get labs drawn and CTH. She does not know the results of the CBC. She was told her CTH OK. I instructed the pt to go the Emergency room immediately. Marie Hall DO Hematology/Onclogy fellow documented in this encounter Plan of Treatment Not on file documented as of this encounter Visit Diagnoses Not on filedocumented in this encounter Care Teams Machine Buffer Relationship Specialty Start Date End Date Melquiades Gates MD [address] [place] [phone] PCP - General 03/01/19 08/09/20 Keven Parrish MD [address] [place] [phone] PCP - General 08/10/20 documented as of this encounter
--- OUTSIDE RECORDS SUMMARY | 2025-01-24 10:52 | XMS_ITS | Clinical Summary ---
Author Organization [facility] Address [address] [place] [address] Phone Care Team Providers Care Yarrow Gatherer Name Role Phone Jennifer Resendiz APRN, SADIE Primary Care Provider Unavailable Social History Tobacco Use Types Packs/Day Years Used Date Smoking Tobacco: Never Assessed Comments Unknown Sex and Gender Information Value Date Recorded Sex Assigned at Not on file Legal Sex Female 10:18 AM CDT Gender Identity Not on file Sexual Orientation Not on file Plan of Treatment Health Maintenance Due Date Last Done Comments Hepatitis C Virus (HCV) Screening 1992 Hepatitis B Immunization (1 of 3 - 19+ 3-dose series) 2011 Pap Smear 2013 Cervical Cancer Screening (CCS) 2022 HPV/Cotest 2022 Influenza Immunization (#1) 2024 06/07/2017 SARS-COV-2 Immunization ( season) 2024 12/08/2020, 11/10/2020 Respiratory Syncytial Virus (RSV) Immunization (Adult) (1 - 1-dose 75+ series) 2067 DTaP/Tdap/Td Immunization Discontinued 06/06/2017 TdaP Immunization Completed 06/06/2017 Meningococcal Immunization (ACWY) Aged Out 09/10/2017 No longer eligible based on patient's age to complete this topic Pneumococcal Immunization Combined Aged Out 09/10/2017 No longer eligible based on patient's age to complete this topic Rotavirus Immunization Aged Out No lo nger eligible based on patient's age to complete this topic Insurance MEDICAID [id number] Care Teams Yarrow Gatherer Relationship Specialty Start Date End Date Jennifer Resendiz APRN, SADIE PCP - General Certified Nurse Research Interviewer 11/25/16
--- OUTSIDE RECORDS SUMMARY | 2025-01-24 10:52 | XMS_ITS | Clinical Summary ---
Author Organization [facility] Address [address] [place] [id number] Care Team Providers Care Applications Consultant Name Role Phone Melquiades Gates MD Primary Care Provider [phone] Allergies Active Allergy Reactions Criticality Noted Date Comments Adhesive Other (See comments) Low 10/31/2023 Reaction: Amoxicillin Clavulanic Acid Rash Medium 06/10/2016 Codeine Dicyclomine Dizziness Low 05/07/2019 Lost my vision Doxycycline Fentanyl Hydrocodone-Acetaminophen Other (See comments) Low 10/31/2023 Reaction: Ketorolac Methocarbamol Hives Medium 01/29/2016 Morphine Nsaids (Non-Steroidal Anti-Inflammatory Drug) GI bleeding 12/22/2022 Sulfamethoxazole-Trimetho prim Terbutaline Hives Medium 11/15/2011 Hives Tramadol Valdecoxib Medications acetaminophen (TYLENOL) 325 mg tablet Take 1 tablet (325 mg total) by mouth every 4 (four) hours as needed Active albuterol HFA (PROVENTIL HFA,VENTOLIN HFA,PROAIR HFA) 90 mcg/actuation inhaler Inhale 2 puffs every 6 (six) hours as needed Active amitriptyline (ELAVIL) 100 mg tablet Take 1 tablet (100 mg total) by mouth nightly at bedtime. 4 Active ampicillin (PRINCIPEN) 500 mg capsule Take 1 capsule (500 mg total) by mouth 2 (two) times a day 1 Active ascorbic acid 500 mg tablet,chewable Take 1 tablet/chew tab (500 mg total) by mouth daily Active benzonatate (TESSALON) 100 mg capsule TAKE 1 TO 2 CAPSULES BY MOUTH EVERY 8 HOURS FOR 5 DAYS NEEDED FOR COUGH 4 Active buPROPion (WELLBUTRIN) 100 mg tablet Take 1 tablet (100 mg total) by mouth 3 (three) times a day 4 Active buPROPion SR (WELLBUTRIN SR) 150 mg 12 hr tablet Take 100 mg by mouth 3 (three) times a day Active buPROPion XL (WELLBUTRIN XL) 300 mg 24 hr tablet Take 1 tablet (300 mg total) by mouth daily 1 Active busPIRone (BUSPAR) 15 mg tablet Take 2 tablets (30 mg total) by mouth 2 (two) times a day 9 Active calcium carbonate (TUMS) 500 mg (200 mg elemental calcium) chewable tablet Take 1 tablet/chew tab (500 mg total) by mouth daily Active cholecalciferol 25 mcg (1,000 unit) tablet Take 1 tablet (1,000 Units total) by mouth daily Active clindamycin (CLEOCIN) 300 mg capsule Take 1 capsule (300 mg total) by mouth 2 (two) times a day 1 Active cyclobenzaprine (FLEXERIL) 10 mg tablet 4 Active dexAMETHasone (DECADRON) 2 mg tablet TAKE 5 TABLET BY MOUTH A ONE TIME DOSE 4 Active diphenhydrAMINE (BENADRYL) 50 mg capsule Take 1 capsule (50 mg total) by mouth nightly Active escitalopram (LEXAPRO) 20 mg tablet Take 1 tablet (20 mg total) by mouth daily Active famotidine (PEPCID) 20 mg tablet Take 1 tablet (20 mg total) by mouth 2 (two) times a day 9 Active ferrous sulfate 325 mg (65 mg of elemental iron) tablet Take 1 tablet (325 mg total) by mouth daily Active gabapentin (NEURONTIN) 300 mg capsule Take 1 capsule (300 mg total) by mouth 3 (three) times a day 1 Active HYDROcodone-rachel taminophen (NORCO) 5-325 mg per tablet Take 1-2 tablets by mouth every 6 (six) hours as needed 4 Active Lactobacillus rhamnosus GG (CULTURELLE) 10 billion cell capsule Take 1 capsule by mouth daily Active Linzess 145 mcg capsule PLEASE SEE ATTACHED FOR DETAILED DIRECTIONS 4 Active methen-m.blue-s .rjjs-dsypf-der (UribeL) 118-10-40.8-36 mg capsule Take 118 mg by mouth every 8 (eight) hours as needed Active multivit mzlgcmou-qkxc-W A-calcium (THERA-M) 9 mg iron-400 mcg tablet Take 1 tablet by mouth daily Active omeprazole (PriLOSEC) 40 mg capsule TAKE 1 CAPSULE BY MOUTH TWICE A DAY BEFORE A MEAL 4 Active ondansetron (ZOFRAN) 4 mg tablet TAKE 1 TABLET BY MOUTH EVERY 4 TO 6 HOURS NEEDED FOR NAUSEA - MAX 6 TABLETS/DAY 4 Active phentermine (ADIPEX-P) 37.5 mg tablet TAKE 1/2 TABLET BEFORE BREAKFAST AND 1/2TAB BEFORE LUNCH DAILY 4 Active spironolactone (ALDACTONE) 100 mg tablet Take 1 tablet (100 mg total) by mouth daily 1 Active sucralfate (CARAFATE) 1 gram tablet TAKE 1 TABLET DISSOVLED IN 2-3 OZ WATER BY MOUTH 4 TIMES DAILY - BEFORE MEALS AND AT BEDTIME 4 Active topiramate (TOPAMAX) 25 mg tablet Take 1 tablet (25 mg total) by mouth 2 (two) times a day 3 Active tretinoin (RETIN-A) 0.025 % cream Pea sized amount to entire face at night. 30 days supply. 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 Hydronephrosis with urinary obstruction due to renal calculus 12/21/2022 Overview (10/31/2023): Added automatically from request for surgery [id number] Obstructive uropathy 12/21/2022 Right flank pain 12/21/2022 Overview (10/31/2023): Added automatically from request for surgery [id number] Right ureteral stone 12/21/2022 Overview (10/31/2023): Added automatically from request for surgery [id number] Acne vulgaris 10/31/2020 Overview (10/31/2023): Last Assessment & Plan: -mixed, flaring -s/p hysterectomy -start spironolactone 100 mg daily, discussed SE urination, spotting, breast tenderness, harm -start BP wash, samples provide -start clindamycin 300 mg BID discussed SE diarrhea (patient allergic to penicillins and doxycycline) -start tretinoin 0.025% cr nightly to face, stop if waxing 2 weeks prior Rash and other nonspecific skin eruption 019 Chronic ITP (idiopathic thrombocytopenia) 2016 Obesity (BMI 35.0-39.9 without comorbidity) 12/25 Bleeding gastrointestinal 07/25/2015 Gastroparesis 06/23/2015 Abdominal pain 04/25/2015 Family History Medical History Relation Name Comments Anxiety disorder Brother Anxiety - ( Added by TW Conv) Depression Brother Family history of depression - (Added by TW Conv) Anxiety disorder Father Anxiety - ( Added by TW Conv) Depression Father Family history of depression - (Added by TW Conv) Hypertension Father Family history of hypertension - (Added by TW Conv) Anxiety disorder Mother Anxiety - ( Added by TW Conv) Cervical cancer Mother Family histo ry of malignant neoplasm of cervix - (Added by TW Conv) Depression Mother Family history of depression - (Added by TW Conv) Anxiety disorder Sister Anxiety - ( Added by TW Conv) Depression Sister Family history of depression - (Added by TW Conv) Relation Name Status Comments Brother Father Mother Sister Social History Tobacco Use Types Packs/Day Years Used Date Smoking Tobacco: Former Comments Unknown Sex and Gender Information Value Date Recorded Sex Assigned at Not on file Legal Sex Female 9:17 PM PROTECTIVE SERVICES CASE WORKER Gender Identity Not on file Sexual Orientation Not on file Obstetrics History Last Filed Vital Signs Vital Sign Reading Time Taken Comments Blood Pressure 120/72 10/31/2023 3:33 PM PROTECTIVE SERVICES CASE WORKER Pulse 86 10/31/2023 3:33 PM PROTECTIVE SERVICES CASE WORKER Temperature 36.8 C (98.3 F) 10/31/2023 3:33 PM PROTECTIVE SERVICES CASE WORKER Respiratory Rate 16 10/31/2023 3:33 PM PROTECTIVE SERVICES CASE WORKER Oxygen Saturation 99% 10/31/2023 3:33 PM PROTECTIVE SERVICES CASE WORKER Inhaled Oxygen Concentration - - Weight 88.5 kg (195 lb) 10/31/2023 3:33 PM PROTECTIVE SERVICES CASE WORKER Height 180.3 cm (5' 11) 10/31/2023 3:33 PM PROTECTIVE SERVICES CASE WORKER Body Mass Index 27.2 10/31/2023 3:33 PM PROTECTIVE SERVICES CASE WORKER Plan of Treatment Health Maintenance Due Date Last Done Comments Cervical Cancer Screening 1992 Depression Screening 1992 Hepatitis C Screening 1992 Meningococcal B Vaccine (1 of 5 - Increased Risk) 2002 Varicella Vaccines (1 of 2 - 13+ 2-dose series) 2005 Hepatitis B Screening 2010 Regular Well Visit/Exam 18-64 2010 Covid-19 Vaccine ( - season) 2024 12/08/2020, 11/10/2020 Influenza Vaccine (Season Ended) 2025 05/22/2019, 10/07/2018, 06/07/2017, Additional history exists DTaP/Tdap/Td Vaccine (2 - Td or Tdap) 06/06/2027 06/06/2017 Pneumococcal vaccine <65 (4 of 4 - PCV20 or PCV21) 2042 09/10/2017, 09/08/2015, 09/08/2015 HPV Vaccines Aged Out No longer eligi ble based on patient's age to complete this topic Insurance [facility] [address] [place] [address] [place] [address] Care Teams Applications Consultant Relationship Specialty Start Date End Date Melquiades Gates MD PCP - General Family Medicine 10/29/19
--- OUTSIDE RECORDS SUMMARY | 2025-01-24 10:52 | XMS_ITS | Referral Summary ---
Author Organization [facility] Address [address] [place] [id number] Care Team Providers Care Conductor Orchestra Name Role Phone Melquiades Gates MD Primary Care Provider [phone] Allergies Active Allergy Reactions Criticality Noted Date [...] ATTACHED FOR DETAILED DIRECTIONS 4 Active methen-m.blue-s .piav-csftm-lpg (UribeL) 118-10-40.8-36 mg capsule Take 118 mg by mouth every 8 (eight) hours as needed Active multivit cnnqqlon-kmcw-P A-calcium (THERA-M) 9 mg iron-400 mcg tablet [...] (10/31/2023): Added automatically from request for surgery [id number] Obstructive uropathy 12/21/2022 Right flank pain 12/21/2022 Overview (10/31/2023): Added automatically from request for surgery [id number] Right ureteral stone 12/21/2022 Overview (10/31/2023): Added automatically from request for surgery [id number] Acne vulgaris 10/31/2020 Overview (10/31/2023): Last Assessment [...] gastrointestinal 07/25/2015 Gastroparesis 06/23/2015 Abdominal pain 04/25/2015 Social History Tobacco Use Types Packs/Day Years Used Date Smoking Tobacco: Former Comments Unknown Sex and Gender Information Value Date Recorded Sex Assigned at Not on file Legal Sex Female 9:17 PM BARREL LOADER Gender Identity Not on file Sexual Orientation Not on file Last Filed Vital Signs Vital Sign Reading Time Taken Comments Blood Pressure 120/72 10/31/2023 3:33 PM BARREL LOADER Pulse 86 10/31/2023 3:33 PM BARREL LOADER Temperature 36.8 C (98.3 F) 10/31/2023 3:33 PM BARREL LOADER Respiratory Rate 16 10/31/2023 3:33 PM BARREL LOADER Oxygen Saturation 99% 10/31/2023 3:33 PM BARREL LOADER Inhaled Oxygen Concentration - - Weight 88.5 kg (195 lb) 10/31/2023 3:33 PM BARREL LOADER Height 180.3 cm (5' 11) 10/31/2023 3:33 PM BARREL LOADER Body Mass Index 27.2 10/31/2023 3:33 PM BARREL LOADER Plan of Treatment Not on file Insurance [facility] Member Subscriber Plan / Payer (Ef fective 2017-Present) Name:Dee Dee Saleh Relation to Subscriber:Self Name:Dee Dee Saleh Payer ID:[id number] (NAIC) Group ID:Not on file Type:MEDICAID RISK OTHER Address: [address] [facility] Care Teams Conductor Orchestra Relationship Specialty Start Date End Date Melquiades Gates MD PCP - General Family Medicine 10/29/19
--- OUTSIDE RECORDS SUMMARY | 2025-01-24 10:52 | XMS_ITS | Clinical Summary ---
Author Organization [facility] Address [address] [place] [address] Care Team Providers Care Mechanical Maintenance Foreman Name Role Phone Keven Parrish MD Primary Care Provider [phone] Source Comments [facility],non-owned Affiliates and Associated Physician Practices is amultiple site organization consisting of ambulatory clinics and hospital sitesin [place], [place], [place] and [place]. This disclosure is being madepursuant to the Care Everywhere program and may not contain all information available regarding this patient. Last updated 18.[facility] Allergies Active Allergy Reactions Criticality Noted Date Comments Amoxicillin Rash Medium 01/22/2017 Sulfamethoxazole W-Trimethoprim Rash Medium 01/22/2017 Dicyclomine Vision Changes 05/07/2019 Valdecoxib Rash Medium 01/22/2017 Clavulanic Acid Rash Medium 06/10/2016 Codeine Nausea and/or Vomiting 10/06/2018 Doxycycline Unknown 01/29/2016 Fentanyl Rash Medium 01/22/2017 Pt states she is not allergic Methocarbamol Urticaria Medium 01/29/2016 Nsaids Other 05/07/2019 ITP Terbutaline Rash Medium 01/22/2017 Ketorolac Rash Medium 01/22/2017 Tramadol Rash Medium 01/22/2017 Medications * Be aware that medications may not be up to date on this document. Alwaysverify current medications with the patient. venlafaxine XR 24hr (EFFEXOR XR) 150 MG capsule Take 150 mg by mouth daily with breakfast Active busPIRone (BUSPAR) 15 MG tablet Take 30 mg by mouth 2 times daily 9 Active diphenhydrAMIN E HCl, Sleep, (UNISOM SLEEPGELS) 50 MG Take 1 capsule by mouth at bedtime Active Meth-Hyo-M Bl-Na Phos-Ph Erik (URIBEL) 118 MG Take 118 mg by mouth every 8 hours as needed Active albuterol HFA (VENTOLIN HFA) 8 gram inhaler Inhale 2 puffs by mouth every 6 hours as needed Active acetaminophen (TYLENOL) 325 MG tablet Take 325 mg by mouth every 4 hours as needed for Fever or Pain Maximum allowable Acetaminophen amount = 4 Grams (4000 mg) / 24 hours. Active famotidine (PEPCID) 20 MG tablet Take 1 tablet by mouth 2 times daily 14 tablet 9 Active AMITRIPTYLINE HCL PO Take 100 mg by mouth at bedtime Active HYDROXYZINE HCL PO Active escitalopram (LEXAPRO) 20 MG tablet Take 20 mg by mouth once daily Active gabapentin (NEURONTIN) 300 MG capsule Take 1 (one) capsule by mouth 3 times daily 25 capsule 1 Active Additional Information Patient not taking.Reported on 10/31/2020 ibuprofen (MOTRIN) 600 MG tablet Take 1 (one) tablet by mouth every 6 hours as needed for Pain 30 tablet 1 Active Additional Information Patient not taking.Reported on 10/31/2020 buPROPion XL 24hr (WELLBUTRIN-XL ) 300 MG tablet Take 1 tablet by mouth once daily 1 Active MULTIPLE VITAMIN PO Take 1 tablet by mouth once daily Active CALCIUM CITRATE PO Take 1 tablet by mouth once daily Active spironolactone (ALDACTONE) 100 MG tabletIndicati ons:Acne vulgaris Take 1 (one) tablet by mouth once daily 30 tablet 4 1 Active clindamycin (CLEOCIN) 300 MG capsuleIndicat ions:Acne vulgaris Take 1 (one) capsule by mouth 2 times daily 60 capsule 2 1 Active tretinoin (RETIN-A) 0.025 % creamIndicatio ns:Acne vulgaris Pea sized amount to entire face at night. 30 days supply. 20 g 5 1 Active ampicillin (PRINCIPEN) 500 MG capsuleIndicat ions:Acne vulgaris Take 1 (one) capsule by mouth 2 times daily 60 capsule 2 1 Active Active Problems Problem Noted Date Diagnosed Date Acne vulgaris 10/31/2020 Assessment & Plan (10/31/2020 1:30 PM RETAIL SALES ASSOCIATE BILINGUAL): -mixed, flaring -s/p hysterectomy -start spironolactone 100 mg daily, discussed SE urination, spotting, breast tenderness, harm -start BP wash, samples provide -start clindamycin 300 mg BID discussed SE diarrhea (patient allergic to penicillins and doxycycline) -start tretinoin 0.025% cr nightly to face, stop if waxing 2 weeks prior S/P laparoscopy 05/12/2019 Rash and other nonspecific skin eruption 019 Pre-op evaluation 12/09/2017 Chronic ITP (idiopathic thrombocytopenia) 2016 History of delivery 01/28/2017 Obesity (BMI 35.0-39.9 without comorbidity) 12/25 History of loop electrical excision procedure (L EEP) 01/22/2017 Bleeding gastrointestinal 07/25/2015 Gastroparesis 06/23/2015 Abdominal pain 04/25/2015 Resolved Problems Problem Noted Date Diagnosed Date Resolved Date Gestational diabetes mellitus (GDM) 03/05/2017 05/12/2019 -induced glucose intolerance 02/12/2017 05/12/2019 GBS bacteriuria 01/23/2017 05/12/2019 Thrombocytopenia 01/22/2017 05/12/2019 Supervision of high risk pre gnancy in second trimester 01/22/2017 05/12/2019 UTI (urinary tract infection ) during 01/22/2017 05/12/2019 Endometriosis 01/22/2017 05/12/2019 Immunizations Immunization Administration Dates Next Due INFLUENZA VACCINE, QUADR. (F LUZONE; FLULAVAL; FLUARIX; AFLURIA QUADRIVALENT; 6MO+), 0.5 ML (IIV4) 05/22/2019,10/07/2018 Family History Medical History Relation Name Comments Pulmonary Embolism Paternal Grandmother Diabetes - Type 2 Sister Relation Name Status Comments Paternal Grandmother Sister Social History Tobacco Use Types Packs/Day Years Used Date Smoking Tobacco: Former Cigarettes Q uit: 2011 Smokeless Tobacco: Never Tobacco Cessation:Counseling Given: Yes Alcohol Use Standard Drinks/Week Comments No 0 (1 standard drink = 0.6 oz pur e alcohol) Comments No Sex and Gender Information Value Date Recorded Sex Assigned at Not on file Legal Sex Female 5:46 AM RETAIL SALES ASSOCIATE BILINGUAL Gender Identity Not on file Sexual Orientation Not on file Last Filed Vital Signs Vital Sign Reading Time Taken Comments Blood Pressure 123/73 10/27/2020 6:47 PM RETAIL SALES ASSOCIATE BILINGUAL Pulse 110 10/27/2020 6:47 PM RETAIL SALES ASSOCIATE BILINGUAL Temperature 36.6 C (97.9 F) 10/27/2020 12:14 PM RETAIL SALES ASSOCIATE BILINGUAL Respiratory Rate 18 10/27/2020 6:47 PM RETAIL SALES ASSOCIATE BILINGUAL Oxygen Saturation 96% 10/27/2020 6:47 PM RETAIL SALES ASSOCIATE BILINGUAL Inhaled Oxygen Concentration - - Weight 127 kg (280 lb) 10/27/2020 12:14 PM RETAIL SALES ASSOCIATE BILINGUAL Height 180.3 cm (5' 11) 10/27/2020 12:14 PM RETAIL SALES ASSOCIATE BILINGUAL Body Mass Index 39.05 10/27/2020 12:14 PM RETAIL SALES ASSOCIATE BILINGUAL Plan of Treatment Health Maintenance Due Date Last Done Comments PAP SMEAR 1992 HIB VACCINE (1 of 1 - Risk 1-dose series) 06/21/1993 MENINGOCOCCAL GROUPS A/C/Y/W VACCINE (1 - Risk 2-dose series) 1994 MENINGOCOCCAL (Group B) VACCINE SHARED DECISION-MAKING (1 of 5 - Increased Risk) 2002 DTAP/TDAP/TD VACCINES (1 - Tdap) 2011 HEPATITIS B VACCINE (1 of 3 - 19+ 3-dose series) 2011 PNEUMOCOCCAL VACCINE (1 of 2 - PCV) 2011 COVID-19 VACCINE (1 - 2023-2 5 season) 2024 DEPRESSION SCREENING 08/25/2024 INFLUENZA VACCINE (Season Ended) 2025 05/22/2019, 10/07/2018 ZOSTER VACCINE (1 of 2) 2042 HEPATITIS C SCREENING Completed 11/07/2017 , 01/23/2017 HIV SCREENING Completed 11/07/2017 HPV VACCINE Aged Out No longer eligi ble based on patient's age to complete this topic Procedures Procedure Name Priority Date/Time Associated Diagnosis Comments HEPATITIS C AB SCREEN RFLX NAAT QUANT Routine 11/07/2017 12:36 PM CDT HIV-1 HIV-2 ANTIGEN/ANTIBODY Routine 11/07/2017 12:36 PM CDT from Last 3 Months or Most Recently Relevant to Health Maintenance Results * HEPATITIS C AB SCREEN RFLX PCR QUANT (11/07/2017 12:36 PM CDT) Hepatitis C Antibody Non-react [facility] Comment: Hepatitis C Antibody screen indicates no serologic evidence of past or current infection with Hepatitis C Virus. Patients with unexplained liver disease who are immunocompromised or suspected of having acute Hepatitis C infection may benefit from Nucleic Acid Test (CARINA) for Hepatitis C Viral RNA to confirm Hepatitis C status. BLOOD SPECIMEN / Unknown 11/07/2017 12:36 PM CDT 11/07/2017 12:41 PM CDT Wilver Vang MD LAB - CHEMISTRY ORDERABLES Fi nal Result Performing Organization Address [facility]/ZIP Co de Phone Number [address] [phone] * HIV-1 HIV-2 ANTIGEN/ANTIBODY (11/07/2017 12:36 PM CDT) HIV Antigen/Antibod y 1 & 2 Non-reacti ve Non-react [facility] Comment: Neither HIV-1 p24 Antigen nor HIV-1/HIV-2 Antibodies are detected. Blood specimen (specimen) BLOOD SPECIMEN / Unknown 11/07/2017 12:36 PM CDT 11/07/2017 12:41 PM CDT Wilver Vang MD LAB - HEMATOLOGY ORDERABLES F inal Result Performing Organization Address [facility]/ZIP Co de Phone Number [address] [phone] from Last 3 Months or Most Recently Relevant to Health Maintenance Insurance [facility] Advance Directives * Full Code (Latest Code Status on File) Date Activated Date Inactivated Comments 05/21/2019 3:28 PM 05/23/2019 11:36 AM * Full Code Date Activated Date Inactivated Comments 10/06/2018 11:30 PM 10/09/2018 1:38 PM * Full Code Date Activated Date Inactivated Comments 12/09/2017 9:24 AM 12/09/2017 5:37 PM * Full Code Date Activated Date Inactivated Comments 03/24/2017 2:15 PM 03/24/2017 5:14 PM * Full Code Date Activated Date Inactivated Comments 02/18/2017 4:56 PM 02/22/2017 4:34 PM Care Teams Mechanical Maintenance Foreman Relationship Specialty Start Date End Date Keven Parrish MD [address] [place] [id number] PCP - General 08/10/20
--- OUTSIDE RECORDS SUMMARY | 2025-01-24 11:23 | XMS_ITS | Clinical Summary ---
Author Organization [facility] Address [address] [facility] [place] [address] Phone Care Team Providers Care Head Refrigeration Engineer Name Role Phone Jennifer Resendiz APRN, SADIE [...] this topic Insurance MEDICAID [id number] Care Teams Head Refrigeration Engineer Relationship Specialty Start Date End Date Jennifer Resendiz APRN, SADIE PCP - General Certified Nurse Bull Ladle Tender 11/25/16
--- OUTSIDE RECORDS SUMMARY | 2025-01-24 11:23 | XMS_ITS | Clinical Summary ---
Author Organization [facility] Address [address] [place] [address] Care Team Providers Care Java Developer Consultant Name Role Phone Keven Parrish MD Primary Care Provider [phone] Source Comments [facility],non-owned Affiliates and Associated Physician Practices is amultiple site organization consisting of ambulatory clinics and hospital sitesin [place], [place], [place] and [place]. This disclosure is being madepursuant to the Care Everywhere program and may not contain all information available regarding this patient. Last updated 18.[facility] Allergies Active Allergy Reactions Criticality Noted Date [...] 10/31/2020 Assessment & Plan (10/31/2020 1:30 PM BRIDGE PAINTER HELPER): -mixed, flaring -s/p hysterectomy -start spironolactone 100 [...] on file Legal Sex Female 5:46 AM BRIDGE PAINTER HELPER Gender Identity Not on file Sexual Orientation Not on file Last Filed Vital Signs Vital Sign Reading Time Taken Comments Blood Pressure 123/73 10/27/2020 6:47 PM BRIDGE PAINTER HELPER Pulse 110 10/27/2020 6:47 PM BRIDGE PAINTER HELPER Temperature 36.6 C (97.9 F) 10/27/2020 12:14 PM BRIDGE PAINTER HELPER Respiratory Rate 18 10/27/2020 6:47 PM BRIDGE PAINTER HELPER Oxygen Saturation 96% 10/27/2020 6:47 PM BRIDGE PAINTER HELPER Inhaled Oxygen Concentration - - Weight 127 kg (280 lb) 10/27/2020 12:14 PM BRIDGE PAINTER HELPER Height 180.3 cm (5' 11) 10/27/2020 12:14 PM BRIDGE PAINTER HELPER Body Mass Index 39.05 10/27/2020 12:14 PM BRIDGE PAINTER HELPER Plan of Treatment Health Maintenance Due Date [...] 12:36 PM CDT) Hepatitis C Antibody Non-react [facility] Comment: Hepatitis C Antibody screen indicates [...] ORDERABLES Fi nal Result Performing Organization Address [facility]/ZIP Co de Phone Number [address] [phone] * HIV-1 HIV-2 ANTIGEN/ANTIBODY (11/07/2017 12:36 PM CDT) HIV Antigen/Antibod y 1 & 2 Non-reacti ve Non-react [facility] Comment: Neither HIV-1 p24 Antigen nor HIV-1/HIV-2 Antibodies are detected. Blood specimen (specimen) BLOOD SPECIMEN / Unknown 11/07/2017 12:36 PM CDT 11/07/2017 12:41 PM CDT Wilver Vang MD LAB - HEMATOLOGY ORDERABLES F inal Result Performing Organization Address [facility]/ZIP Co de Phone Number [address] [phone] from Last 3 Months or Most Recently Relevant to Health Maintenance Insurance [facility] Advance Directives * Full Code (Latest [...] 4:56 PM 02/22/2017 4:34 PM Care Teams Java Developer Consultant Relationship Specialty Start Date End Date Keven Parrish MD [address] [place] [id number] PCP - General 08/10/20
--- OUTSIDE RECORDS SUMMARY | 2025-01-24 11:23 | XMS_ITS | Encounter Summary ---
Author Organization [facility] Address [address] [place] [address] Care Team Providers Care Back Office Medical Assistant Name Role Phone Melquiades Gates MD Primary Care Provider Keven Parrish MD Primary Care Provider Encounter Details Date Type Department Care Team (Late st Contact Info) Description 05/08/2020 [facility] [address] [place] [address] Annette Hall DO [address] [place] [address] Social History Tobacco Use Types Packs/Day Years Used Date Smoking Tobacco: Former Cigarettes Q uit: 2012 Smokeless Tobacco: Never Alcohol Use Standard Drinks/Week Comments No 0 (1 standard drink = 0.6 oz pur e alcohol) Comments No Sex and Gender Information Value Date Recorded Sex Assigned at Not on file Legal Sex Female 5:46 AM BLUNGER LOADER Gender Identity Not on file Sexual [...] on filedocumented in this encounter Care Teams Back Office Medical Assistant Relationship Specialty Start Date End Date Melquiades Gates MD [address] [place] [phone] PCP - General 03/01/19 08/09/20 Keven Parrish MD [address] [place] [phone] PCP - General 08/10/20 documented as of this encounter
--- OUTSIDE RECORDS SUMMARY | 2025-01-24 11:23 | XMS_ITS | Clinical Summary ---
Author Organization [facility] Address [address] [place] [phone] Care Team Providers Care Liver Trimmer Name Role Phone Melquiades Gates MD Primary Care Provider [phone] Allergies Active Allergy Reactions Criticality Noted Date [...] ATTACHED FOR DETAILED DIRECTIONS 4 Active methen-m.blue-s .flly-prchi-eor (UribeL) 118-10-40.8-36 mg capsule Take 118 mg by mouth every 8 (eight) hours as needed Active multivit indhwyni-ptfd-E A-calcium (THERA-M) 9 mg iron-400 mcg tablet [...] (10/31/2023): Added automatically from request for surgery [id number] Obstructive uropathy 12/21/2022 Right flank pain 12/21/2022 Overview (10/31/2023): Added automatically from request for surgery [id number] Right ureteral stone 12/21/2022 Overview (10/31/2023): Added automatically from request for surgery [id number] Acne vulgaris 10/31/2020 Overview (10/31/2023): Last Assessment [...] on file Legal Sex Female 9:17 PM ASSET PROTECTION LEAD Gender Identity Not on file Sexual Orientation Not on file Obstetrics History Last Filed Vital Signs Vital Sign Reading Time Taken Comments Blood Pressure 120/72 10/31/2023 3:33 PM ASSET PROTECTION LEAD Pulse 86 10/31/2023 3:33 PM ASSET PROTECTION LEAD Temperature 36.8 C (98.3 F) 10/31/2023 3:33 PM ASSET PROTECTION LEAD Respiratory Rate 16 10/31/2023 3:33 PM ASSET PROTECTION LEAD Oxygen Saturation 99% 10/31/2023 3:33 PM ASSET PROTECTION LEAD Inhaled Oxygen Concentration - - Weight 88.5 kg (195 lb) 10/31/2023 3:33 PM ASSET PROTECTION LEAD Height 180.3 cm (5' 11) 10/31/2023 3:33 PM ASSET PROTECTION LEAD Body Mass Index 27.2 10/31/2023 3:33 PM ASSET PROTECTION LEAD Plan of Treatment Health Maintenance Due Date [...] patient's age to complete this topic Insurance [facility] [place] [address] [place] [address] Care Teams Liver Trimmer Relationship Specialty Start Date End Date Melquiades Gates MD PCP - General Family Medicine 10/29/19
--- OUTSIDE RECORDS SUMMARY | 2025-01-24 11:23 | XMS_ITS | Referral Summary ---
Author Organization [facility] Address [address] [place] [phone] Care Team Providers Care Nitroglycerin Distributor Name Role Phone Melquiades Gates MD Primary Care Provider [phone] Allergies Active Allergy Reactions Criticality Noted Date [...] ATTACHED FOR DETAILED DIRECTIONS 4 Active methen-m.blue-s .hjpt-atqaf-drx (UribeL) 118-10-40.8-36 mg capsule Take 118 mg by mouth every 8 (eight) hours as needed Active multivit yahulwuu-ywtn-E A-calcium (THERA-M) 9 mg iron-400 mcg tablet [...] (10/31/2023): Added automatically from request for surgery [id number] Obstructive uropathy 12/21/2022 Right flank pain 12/21/2022 Overview (10/31/2023): Added automatically from request for surgery [id number] Right ureteral stone 12/21/2022 Overview (10/31/2023): Added automatically from request for surgery [id number] Acne vulgaris 10/31/2020 Overview (10/31/2023): Last Assessment [...] on file Legal Sex Female 9:17 PM BIOCHEMISTRY TECHNOLOGIST Gender Identity Not on file Sexual Orientation Not on file Last Filed Vital Signs Vital Sign Reading Time Taken Comments Blood Pressure 120/72 10/31/2023 3:33 PM BIOCHEMISTRY TECHNOLOGIST Pulse 86 10/31/2023 3:33 PM BIOCHEMISTRY TECHNOLOGIST Temperature 36.8 C (98.3 F) 10/31/2023 3:33 PM BIOCHEMISTRY TECHNOLOGIST Respiratory Rate 16 10/31/2023 3:33 PM BIOCHEMISTRY TECHNOLOGIST Oxygen Saturation 99% 10/31/2023 3:33 PM BIOCHEMISTRY TECHNOLOGIST Inhaled Oxygen Concentration - - Weight 88.5 kg (195 lb) 10/31/2023 3:33 PM BIOCHEMISTRY TECHNOLOGIST Height 180.3 cm (5' 11) 10/31/2023 3:33 PM BIOCHEMISTRY TECHNOLOGIST Body Mass Index 27.2 10/31/2023 3:33 PM BIOCHEMISTRY TECHNOLOGIST Plan of Treatment Not on file Insurance [facility] Member Subscriber Plan / Payer (Ef fective 2017-Present) Name:Dee Dee Saleh Relation to Subscriber:Self Name:Dee Dee Saleh Payer ID:[id number] (NAIC) Group ID:Not on file Type:MEDICAID RISK OTHER Address: [address] [facility] Care Teams Nitroglycerin Distributor Relationship Specialty Start Date End Date Melquiades Gates MD PCP - General Family Medicine 10/29/19
[2025-01-24 11:36] VITALS: BP 112/78; PULSE 78; RESP 16; TEMP 36.7; O2SAT 100
[2025-01-24 11:37] VITALS: BP 112/78; PULSE 78; RESP 16; TEMP 36.7; O2SAT 100
== END 2025-01-24 11:36 | disposition home or self-care (01) ==
PROVIDERS: Emergency Provider Emergency Medicine; PCP Family Medicine
DX: M54.17 Radiculopathy, lumbosacral region (principal); S39.92XA Unspecified injury of lower back, initial encounter; W17.89XA Other fall from one level to another, initial encounter; D69.3 Immune thrombocytopenic purpura; Z98.84 Bariatric surgery status; Z87.891 Personal history of nicotine dependence
CPT/HCPCS: 72100; 72220; 99283

== ENCOUNTER 2025-02-05 06:56 | Outpatient (CLI) | payer OTHER, SELFPAY ==
--- NOTE | ~2025-02-05 | MR_ITS ---
MRI of the sacrum CLINICAL HISTORY: Pain, status post fall TECHNIQUE: Sagittal T1-weighted and STIR images, coronal T1-weighted and STIR images, and axial T1-we ighted and STIR images were performed. FINDINGS: There is extensive marrow edema involving the S4 level, with minimal involvement of the inf erior S3 level extending to the superior aspect of S5 level. This could reflect contusion versus nond isplaced fracture. Remaining marrow signals in the visualized pelvic bones are unremarkable. No soft tissue mass or fluid collection seen. Visualized musculature unremarkable. SI joints are inta ct. Visualized hip joints are intact with probable mild to moderate chondromalacia. IMPRESSION: Extensive marrow in the lower sacrum centered at the S4 level, suspicious for nondisplaced fracture v ersus bone contusion. Reviewed, dictated and finalized at [facility]. IMPRESSION: Extensive marrow in the lower sacrum centered at the S4 level, suspicious for n ondisplaced fracture versus bone contusion.
--- OUTSIDE RECORDS SUMMARY | 2025-02-05 06:59 | XMS_ITS | Encounter Summary ---
Author Organization [facility] Address [address] [facility] [place] [address] Care Team Providers Care Raise Miner Name Role Phone Melquiades Gates MD Primary Care Provider Keven Parrish MD Primary Care Provider Encounter Details Date Type Department Care Team (Late st Contact Info) Description 05/08/2020 [facility] [address] [place] [address] Annette Hall DO [address] [place] [address] Social History Tobacco Use Types Packs/Day Years Used Date Smoking Tobacco: Former Cigarettes Q uit: 2012 Smokeless Tobacco: Never Alcohol Use Standard Drinks/Week Comments No 0 (1 standard drink = 0.6 oz pur e alcohol) Comments No Sex and Gender Information Value Date Recorded Sex Assigned at Not on file Legal Sex Female 5:46 AM FINANCIAL SERVICES ASSOCIATE Gender Identity Not on file Sexual Orientation [...] on filedocumented in this encounter Care Teams Raise Miner Relationship Specialty Start Date End Date Melquiades Gates MD [address] [place] [phone] PCP - General 03/01/19 08/09/20 Keven Parrish MD [address] [place] [phone] PCP - General 08/10/20 documented as of this encounter
--- OUTSIDE RECORDS SUMMARY | 2025-02-05 06:59 | XMS_ITS | Clinical Summary ---
Author Organization [facility] Address [address] [place] [address] Phone Care Team Providers Care Ordnance Artificer Name Role Phone Jennifer Resendiz APRN, SADIE [...] this topic Insurance MEDICAID [id number] Care Teams Ordnance Artificer Relationship Specialty Start Date End Date Jennifer Resendiz APRN, SADIE PCP - General Certified Nurse Home Housekeeper 11/25/16
--- OUTSIDE RECORDS SUMMARY | 2025-02-05 06:59 | XMS_ITS | Clinical Summary ---
Author Organization [facility] Address [address] [facility] [place] [address] Care Team Providers Care Piano Tuner Name Role Phone Keven Parrish MD Primary Care Provider [phone] Source Comments [facility],non-owned Affiliates and Associated Physician Practices is amultiple site organization consisting of ambulatory clinics and hospital sitesin [place], [place], [place] and [place]. This disclosure is being madepursuant to the Care Everywhere program and may not contain all information available regarding this patient. Last updated 18.[facility] Allergies Active Allergy Reactions Criticality Noted Date [...] 10/31/2020 Assessment & Plan (10/31/2020 1:30 PM DRY HEAT CABINET ATTENDANT): -mixed, flaring -s/p hysterectomy -start spironolactone 100 [...] on file Legal Sex Female 5:46 AM DRY HEAT CABINET ATTENDANT Gender Identity Not on file Sexual Orientation Not on file Last Filed Vital Signs Vital Sign Reading Time Taken Comments Blood Pressure 123/73 10/27/2020 6:47 PM DRY HEAT CABINET ATTENDANT Pulse 110 10/27/2020 6:47 PM DRY HEAT CABINET ATTENDANT Temperature 36.6 C (97.9 F) 10/27/2020 12:14 PM DRY HEAT CABINET ATTENDANT Respiratory Rate 18 10/27/2020 6:47 PM DRY HEAT CABINET ATTENDANT Oxygen Saturation 96% 10/27/2020 6:47 PM DRY HEAT CABINET ATTENDANT Inhaled Oxygen Concentration - - Weight 127 kg (280 lb) 10/27/2020 12:14 PM DRY HEAT CABINET ATTENDANT Height 180.3 cm (5' 11) 10/27/2020 12:14 PM DRY HEAT CABINET ATTENDANT Body Mass Index 39.05 10/27/2020 12:14 PM DRY HEAT CABINET ATTENDANT Plan of Treatment Health Maintenance Due Date [...] 12:36 PM CDT) Hepatitis C Antibody [facility] Comment: Hepatitis C Antibody screen indicates no [...] ORDERABLES Fi nal Result Performing Organization Address [facility]/ZIP Co de Phone Number [address] [phone] * HIV-1 HIV-2 ANTIGEN/ANTIBODY (11/07/2017 12:36 PM CDT) HIV Antigen/Antibod y 1 & 2 Non-reacti ve Non-react [facility] Comment: Neither HIV-1 p24 Antigen nor HIV-1/HIV-2 Antibodies are detected. Blood specimen (specimen) BLOOD SPECIMEN / Unknown 11/07/2017 12:36 PM CDT 11/07/2017 12:41 PM CDT Wilver Vang MD LAB - HEMATOLOGY ORDERABLES F inal Result Performing Organization Address [facility]/ZIP Co de Phone Number [address] [phone] from Last 3 Months or Most Recently Relevant to Health Maintenance Insurance [facility] Advance Directives * Full Code (Latest [...] 4:56 PM 02/22/2017 4:34 PM Care Teams Piano Tuner Relationship Specialty Start Date End Date Keven Parrish MD [address] [place] [phone] PCP - General 08/10/20
--- OUTSIDE RECORDS SUMMARY | 2025-02-05 06:59 | XMS_ITS | Clinical Summary ---
Author Organization [facility] Address [address] [place] [phone] Care Team Providers Care Pipe Foreman Name Role Phone Melquiades Gates MD Primary Care Provider [phone] Allergies Active Allergy Reactions Criticality Noted Date [...] ATTACHED FOR DETAILED DIRECTIONS 4 Active methen-m.blue-s .rlwe-ejbim-qlw (UribeL) 118-10-40.8-36 mg capsule Take 118 mg by mouth every 8 (eight) hours as needed Active multivit ndlzkarh-cwnr-D A-calcium (THERA-M) 9 mg iron-400 mcg tablet [...] (10/31/2023): Added automatically from request for surgery [id number] Obstructive uropathy 12/21/2022 Right flank pain 12/21/2022 Overview (10/31/2023): Added automatically from request for surgery [id number] Right ureteral stone 12/21/2022 Overview (10/31/2023): Added automatically from request for surgery [id number] Acne vulgaris 10/31/2020 Overview (10/31/2023): Last Assessment [...] on file Legal Sex Female 9:17 PM INFORMATION ANALYST Gender Identity Not on file Sexual Orientation Not on file Obstetrics History Last Filed Vital Signs Vital Sign Reading Time Taken Comments Blood Pressure 120/72 10/31/2023 3:33 PM INFORMATION ANALYST Pulse 86 10/31/2023 3:33 PM INFORMATION ANALYST Temperature 36.8 C (98.3 F) 10/31/2023 3:33 PM INFORMATION ANALYST Respiratory Rate 16 10/31/2023 3:33 PM INFORMATION ANALYST Oxygen Saturation 99% 10/31/2023 3:33 PM INFORMATION ANALYST Inhaled Oxygen Concentration - - Weight 88.5 kg (195 lb) 10/31/2023 3:33 PM INFORMATION ANALYST Height 180.3 cm (5' 11) 10/31/2023 3:33 PM INFORMATION ANALYST Body Mass Index 27.2 10/31/2023 3:33 PM INFORMATION ANALYST Plan of Treatment Health Maintenance Due Date [...] to complete this topic Insurance [facility] [place] [address] [place] [address] Care Teams Pipe Foreman Relationship Specialty Start Date End Date Melquiades Gates MD PCP - General Family Medicine 10/29/19
--- OUTSIDE RECORDS SUMMARY | 2025-02-05 06:59 | XMS_ITS | Referral Summary ---
Author Organization [facility] Address [address] [place] [phone] Care Team Providers Care Juice Bar Team Member Name Role Phone Melquiades Gates MD Primary Care Provider [phone] Allergies Active Allergy Reactions Criticality Noted Date [...] ATTACHED FOR DETAILED DIRECTIONS 4 Active methen-m.blue-s .liss-kqayy-iqs (UribeL) 118-10-40.8-36 mg capsule Take 118 mg by mouth every 8 (eight) hours as needed Active multivit ljqnseqn-nhvr-J A-calcium (THERA-M) 9 mg iron-400 mcg tablet [...] (10/31/2023): Added automatically from request for surgery [id number] Obstructive uropathy 12/21/2022 Right flank pain 12/21/2022 Overview (10/31/2023): Added automatically from request for surgery [id number] Right ureteral stone 12/21/2022 Overview (10/31/2023): Added automatically from request for surgery [id number] Acne vulgaris 10/31/2020 Overview (10/31/2023): Last Assessment [...] on file Legal Sex Female 9:17 PM FIELD STAFF Gender Identity Not on file Sexual Orientation Not on file Last Filed Vital Signs Vital Sign Reading Time Taken Comments Blood Pressure 120/72 10/31/2023 3:33 PM FIELD STAFF Pulse 86 10/31/2023 3:33 PM FIELD STAFF Temperature 36.8 C (98.3 F) 10/31/2023 3:33 PM FIELD STAFF Respiratory Rate 16 10/31/2023 3:33 PM FIELD STAFF Oxygen Saturation 99% 10/31/2023 3:33 PM FIELD STAFF Inhaled Oxygen Concentration - - Weight 88.5 kg (195 lb) 10/31/2023 3:33 PM FIELD STAFF Height 180.3 cm (5' 11) 10/31/2023 3:33 PM FIELD STAFF Body Mass Index 27.2 10/31/2023 3:33 PM FIELD STAFF Plan of Treatment Not on file Insurance [facility] Member Subscriber Plan / Payer (Ef fective 2017-Present) Name:Dee Dee Saleh Relation to Subscriber:Self Name:Dee Dee Saleh Payer ID:[id number] (NAIC) Group ID:Not on file Type:MEDICAID RISK OTHER Address: [address] [facility] Care Teams Juice Bar Team Member Relationship Specialty Start Date End Date Melquiades Gates MD PCP - General Family Medicine 10/29/19
== END 2025-02-05 06:57 | disposition home or self-care (01) ==
PROVIDERS: PCP Family Medicine; Visit Provider Family Medicine
DX: R10.2 Pelvic and perineal pain (principal)
CPT/HCPCS: 72195

== ENCOUNTER 2025-04-28 13:13 | Outpatient (CLI) | payer OTHER, SELFPAY ==
--- NOTE | ~2025-04-28 | MR_ITS ---
EXAMINATION: MR lumbar spine wo con DATE: 04/28/2025 13:56 INDICATION: Radiculopathy, lumbar region. TECHNIQUE: Magnetic resonance imaging (MRI) of the lumbar spine was performed without intravenous contrast. COMPARISON: Lumbar spine radiograph 01/24/2025 FINDINGS: Alignment is normal. Vertebral body heights are normal. There is mildly decreased disc height at L4-L5. The distal spinal cord signal intensity is normal. The conus medullaris is at L1-L2. The following disc levels are specifically discussed: L1-L2: The disc does not extend beyond the endplate margin. There is no facet joint osteoarthritis. There is no neural foraminal stenosis. There is no central canal stenosis. L2-L3: The disc does not extend beyond the endplate margin. There is mild bilateral facet joint osteoarthritis. There is no neural foraminal stenosis. There is no central canal stenosis. L3-L4: The disc is bulging and has an annular fissure. There is mild bilateral facet joint osteoarthritis. There is mild left neural foraminal stenosis. There is mild central canal stenosis. L4-L5: The disc is bulging and has an annular fissure. There is mild bilateral facet joint osteoarthritis. There is mild bilateral neural foraminal stenosis. There is mild central canal stenosis. L5-S1: The disc does not extend beyond the endplate margin. There is mild bilateral facet joint osteoarthritis. There is no neural foraminal stenosis. There is no central canal stenosis. IMPRESSION: 1. Mild lumbar spondylosis. Reviewed, dictated and finalized at location K. IMPRESSION: 1. Mild lumbar spondylosis.
--- OUTSIDE RECORDS SUMMARY | 2025-04-28 13:19 | XMS_ITS | Clinical Summary ---
Author Organization [facility] Address [address] [facility] [address] Care Team Providers Care Podiatric Medicine Professor Name Role Phone Keven Parrish MD Primary Care Provider [phone] Source Comments [facility],non-owned Affiliates and Associated Physician Practices is amultiple site organization consisting of ambulatory clinics and hospital sitesin [place], [place], [place] and [place]. This disclosure is being madepursuant to the Care Everywhere program and may not contain all information available regarding this patient. Last updated 18.[facility] Allergies Active Allergy Reactions Criticality Noted Date [...] mouth at bedtime Active Meth-Hyo-M Bl-Na Phos-Ph Eirk (URIBEL) 118 MG Take 118 mg by [...] 10/31/2020 Assessment & Plan (10/31/2020 1:30 PM HEALTH INSPECTOR): -mixed, flaring -s/p hysterectomy -start spironolactone 100 [...] on file Legal Sex Female 5:46 AM HEALTH INSPECTOR Gender Identity Not on file Sexual Orientation Not on file Last Filed Vital Signs Vital Sign Reading Time Taken Comments Blood Pressure 123/73 10/27/2020 6:47 PM HEALTH INSPECTOR Pulse 110 10/27/2020 6:47 PM HEALTH INSPECTOR Temperature 36.6 C (97.9 F) 10/27/2020 12:14 PM HEALTH INSPECTOR Respiratory Rate 18 10/27/2020 6:47 PM HEALTH INSPECTOR Oxygen Saturation 96% 10/27/2020 6:47 PM HEALTH INSPECTOR Inhaled Oxygen Concentration - - Weight 127 kg (280 lb) 10/27/2020 12:14 PM HEALTH INSPECTOR Height 180.3 cm (5' 11) 10/27/2020 12:14 PM HEALTH INSPECTOR Body Mass Index 39.05 10/27/2020 12:14 PM HEALTH INSPECTOR Plan of Treatment Health Maintenance Due Date Last Done Comments HIB VACCINE (1 of 1 - Risk 1-dose series) 06/21/1993 MENINGOCOCCAL GROUPS A/C/Y/W VACCINE (1 - Risk 2-dose series) 1994 MENINGOCOCCAL (Group B) VACC INE SHARED DECISION-MAKING (1 of 4 - Increased Risk) 2002 DTAP/TDAP/TD VACCINES (1 - Tdap) 2011 HEPATITIS B VACCINE (1 of 3 - 19+ 3-dose series) 2011 PNEUMOCOCCAL VACCINE (1 of 2 - PCV) 2011 HPV VACCINE (1 - 3-dose SCDM series) 2019 DEPRESSION SCREENING 08/25/2024 COVID-19 VACCINE (1 - season) 2025 INFLUENZA VACCINE (#1) 2025 05/22/2019, 2018 ZOSTER VACCINE (1 of 2) 2042 HEPATITIS C SCREENING Completed 11/07/2017, 017 HIV SCREENING Completed 11/07/2017 Procedures Procedure Name Priority Date/Time Associated Diagnosis Comments HEPATITIS C AB SCREEN RFLX NAAT QUANT Routine 11/07/2017 12:36 PM CDT HIV-1 HIV-2 ANTIGEN/ANTIBODY Routine 11/07/2017 12:36 PM CDT from Last 3 Months or Most Recently Relevant to Health Maintenance Results * HEPATITIS C AB SCREEN RFLX PCR QUANT (11/07/2017 12:36 PM CDT) Hepatitis C Antibody Non-react [facility] Comment: Hepatitis C Antibody screen indicates [...] ORDERABLES Fi nal Result Performing Organization Address [facility]/ZIP Co de Phone Number [address] [phone] * HIV-1 HIV-2 ANTIGEN/ANTIBODY (11/07/2017 12:36 PM CDT) HIV Antigen/Antibod y 1 & 2 Non-reacti ve Non-react [facility] Comment: Neither HIV-1 p24 Antigen nor HIV-1/HIV-2 Antibodies are detected. Blood specimen (specimen) BLOOD SPECIMEN / Unknown 11/07/2017 12:36 PM CDT 11/07/2017 12:41 PM CDT Wilver Vang MD LAB - HEMATOLOGY ORDERABLES F inal Result Performing Organization Address City/[facility]/ZIP Co de Phone Number [address] [phone] from Last 3 Months or Most Recently Relevant to Health Maintenance Insurance [facility] Advance Directives * Full Code (Latest [...] 4:56 PM 02/22/2017 4:34 PM Care Teams Podiatric Medicine Professor Relationship Specialty Start Date End Date Keven Parrish MD [address] [place] [phone] PCP - General 08/10/20
--- OUTSIDE RECORDS SUMMARY | 2025-04-28 13:19 | XMS_ITS | Clinical Summary ---
Author Organization [facility] Address [address] [place] [address] Care Team Providers Care Documentation Liaison Name Role Phone Keven Parrish MD Primary Care Provider [phone] Felice Christy MD Unavailable Unavailable John Shin MD Unavailable Allergies Active Allergy Reactions Criticality Noted Date Comments Tape Other (see comment) 04/26/2020 Rips skin off; blisters Amoxicillin-Pot Clavulanate Rash Low 06/21/2020 Dicyclomine Dizziness 05/07/2019 Lost my vision Codeine Nausea and Vomiting 01/29/2016 Doxycycline Hives 01/29/2016 Caused severe yeast infection Ketorolac Rash Medium 01/22/2017 Methocarbamol Hives Medium 01/29/2016 Nsaids Other (see comment) 05/07/2019 ITP Sulfa Antibiotics Unknown 01/29/2016 Happened as a child Sulfamethoxazole-Trimeth oprim Unknown 04/23/2011 Happened as a child Terbutaline Vomiting Medium 01/29/2016 Tramadol Rash Medium 01/29/2016 Valdecoxib Rash Medium 01/29/2016 Medications buPROPion SR 150 MG 12 hr tablet Take 100 mg by mouth 3 (three) times daily. Active omeprazole 20 MG capsule Take 2 capsules (40 mg total) by mouth 2 (two) times a day. Active LINZESS 145 MCG capsule Take 1 capsule (145 mcg total) by mouth daily. 12/04/2022 Active HYDROcodone-rachel taminophen (NORCO) 5-325 MG tabletIndicatio ns:Acute Pain < 3 Day Supply Take 1-2 tablets by mouth every 6 (six) hours as needed. Indications: Acute Pain < 3 Day Supply 12 tablet 10/20/2023 Active ferrous sulfate, 65 mg elemental, 325 (65 FE) MG tablet Take 1 tablet (325 mg total) by mouth daily. Active Phentermine HCl 30 MG Cap Take 30 mg by mouth 2 (two) times daily. Active busPIRone (BUSPAR) 10 MG tablet Take 1 tablet (10 mg total) by mouth 2 (two) times daily. Active pantoprazole EC (PROTONIX) 40 MG tablet Take 1 tablet (40 mg total) by mouth daily. Active buPROPion (WELLBUTRIN) 100 MG tablet Take 1 tablet (100 mg total) by mouth 3 (three) times daily. 12/02/2024 Active cyclobenzaprine (FLEXERIL) 10 MG tablet Take 1 tablet (10 mg total) by mouth nightly at bedtime. 12/28/2024 Active Active Problems Problem Noted Date Diagnosed Date SBO (small bowel obstruction) ([facility]) 12/29/2024 Resolved Problems Problem Noted Date Diagnosed Date Resolved Date Preop cardiovascular exam 05/10/2020 Family History Medical History Relation Comments Hypertension Father Relation Status Comments Father Alive Mother Alive Social History Tobacco Use Types Packs/Day Years Used Date Smoking Tobacco: Former Cigarettes Smokeless Tobacco: Never Tobacco Cessation:Counseling Given: Not Answered Comments:quit smoking 8 years ago; stopped Vaping Apr 2020 Alcohol Use Standard Drinks/Week Comments No 0 (1 standard drink = 0.6 oz pur e alcohol) B1300 Health Literacy Answer Date Recor ded How often do you need to hav e someone help you when you read instructions, pamphlets, or other written material from your doctor or pharmacy? Rarely 12/30/2024 [facility] Utilities Answer Date Recorded In the past 12 months has [facility] [employer], [employer], or water [employer] threatened to shut off services in your home? No 12/30/2024 Humiliation, Afraid, Rape, and Kick questionnair e Answer Date Recorded Within the last year, have y ou been afraid of your partner or ex-partner? No 12/30/2024 Within the last year, have y ou been humiliated or emotionally abused in other ways by your partner or ex-partner? No Within the last year, have y ou been kicked, hit, slapped, or otherwise physically hurt by your partner or ex-partner? No 12/30/2024 Within the last year, have y ou been raped or forced to have any kind of sexual activity by your partner or ex-partner? No 12/30/2024 Social Connection and Isolation Panel [NHANES] A nswer Date Recorded Frequency of Communication with Friends and Fami ly Not on file 12/30/2024 Frequency of Social Gatherings with Friends and Family Not on file 12/30/2024 How often do you attend alevism or confucianist serv ices? Patient declined 12/30/2024 Active Member of Clubs or Organizations Not on f ile 12/30/2024 Attends Club or Organization Meetings Not on raimundo e 12/30/2024 Marital Status Not on file 12/30/2024 AUDIT-C Answer Date Recorded Frequency of Alcohol Consumption Never 04/03/2019 Average Number of Drinks Not on file 019 Frequency of Binge Drinking Not on file 03/25 Overall Financial Resource Strain (CARDIA) Answe r Date Recorded How hard is it for you to pa y for the very basics like food, housing, medical care, and heating? Not very hard 12/30/2024 [facility] Occup[facility] ional [facility] - Occupational Stress Questionnaire Answer Date Recorded Do you feel stress - tense, restless, nervous, or anxious, or unable to sleep at night because your mind is troubled all the time - these days? Only a little 12/30/2024 Exercise Vital Sign Answer Date Recorde d On average, how many days pe r week do you engage in moderate to strenuous exercise (like a brisk walk)? 3 days 12/30/2024 On average, how many minutes do you engage in exercise at this level? 30 min 12/30/2024 Hunger Vital Sign Answer Date Recorded Within the past 12 months, y ou worried that your food would run out before you got the money to buy more. Never true 12/31/19 25 Within the past 12 months, t he food you bought just didn't last and you didn't have money to get more. Never true 12/30/2024 PRAPARE - Transportation Answer Date Re corded In the past 12 months, has l ack of transportation kept you from medical appointments or from getting medications? No 03/2025 In the past 12 months, has l ack of transportation kept you from meetings, work, or from getting things needed for daily living? No 12/30/2024 Housing Stability Vital Sign Answer Grant e Recorded In the last 12 months, was t here a time when you were not able to pay the mortgage or rent on time? No 12/30/2024 In the past 12 months, how m any times have you moved where you were living? 0 12/30/2024 At any time in the past 12 m [facility], were you homeless or living in a group home (including now)? No 12/30/2024 Comments No Sex and Gender Information Value Date Recorded Sex Assigned at Female 12/29/2024 6:33 PM CDT Legal Sex Female 7:18 PM CDT Gender Identity Not on file Sexual Orientation Not on file Last Filed Vital Signs Vital Sign Reading Time Taken Comments Blood Pressure 105/67 12/31/2024 7:42 AM CDT Pulse 64 12/31/2024 7:42 AM CDT Temperature 36.7 C (98.1 F) 12/31/2024 7:42 AM CDT Respiratory Rate 18 12/30/2024 11:26 PM CDT Oxygen Saturation 100% 12/31/2024 7:42 AM CDT Inhaled Oxygen Concentration - - Weight 86.9 kg (191 lb 9.3 oz) 12/31/2024 5:00 A M CDT Height 180.3 cm (5' 11) 12/30/2024 6:03 AM CDT Body Mass Index 26.72 12/30/2024 6:03 AM CDT Plan of Treatment Health Maintenance Due Date Last Done Comments Meningococcal Vaccine (1 - R isk 2-dose series) 1994 Annual Physical 1995 Meningococcal B Vaccine (1 o f 5 - Increased Risk) 2002 Hepatitis C 2010 DTaP, Tdap and Td Vaccines ( 1 - Tdap) 2011 Hepatitis B Vaccines (1 of 3 - 19+ 3-dose series) 2011 Pneumococcal Vaccine: Pediat rics (0 to 5 Years) and At-Risk Patients (6 to 49 Years) (1 of 2 - PCV) 2011 HPV Vaccines (1 - 3-dose SCD M series) 2019 COVID-19 Vaccine (2023-2 5 season) 2025 RSV Immunizations Under 20 Months Aged Out No longer eligible based on patient's age to complete this topic Insurance [facility] Member Subscriber Plan / Payer (Ef fective 2024-Present) Name:Dee Dee Saleh Relation to Subscriber:Self Name:Dee Dee Saleh Payer ID:[id number] (NAIC) Type:Not on file Address: [place] [id number] Care Teams Documentation Liaison Relationship Specialty Start Date End Date Keven Parrish MD [address] [place] [address] PCP - General FAMILY PRACTICE 05/10/20 Felice Christy MD [address] [place] [address] [place] Can Labeler INTERVENTIONAL CARDIOLOGY 05/22/20 John Shin MD [address] [place] [phone] Bariatric Advisory Intern SURGERY 07/01/21
--- OUTSIDE RECORDS SUMMARY | 2025-04-28 13:19 | XMS_ITS | Clinical Summary ---
Author Organization [facility] Address [address] [place] [address] Phone Care Team Providers Care Leave Specialist Name Role Phone Jennifer Resendiz APRN, CNM Primary Care Provider Unavailable Social History Tobacco [...] 19+ 3-dose series) 2011 Pap Smear 2013 Human Papillomavirus (HPV) Immunization (1 - 3-dose SCDM series) 2019 Cervical Cancer Screening (CCS) 2022 HPV/Cotest 2022 SARS-COV-2 Immunization ( season) 2024 12/08/2020, 11/10/2020 Influenza Immunization (#1) 2025 06/07/2017 Respiratory Syncytial Virus (RSV) Immunization (Adult) (1 [...] this topic Insurance MEDICAID RODRIGUEZ Care Teams Leave Specialist Relationship Specialty Start Date End Date Jennifer Resendiz, DIANA, SADIE PCP - General Certified Nurse Technical Writer And Editor 11/25/16
--- OUTSIDE RECORDS SUMMARY | 2025-04-28 13:19 | XMS_ITS | Encounter Summary ---
Author Organization [facility] Address [facility] [place] [address] Care Team Providers Care Raw Finish Mill Operator Name Role Phone Melquiades Gates MD Primary Care Provider [phone] Keven Parrish MD Primary Care Provider [phone] Felice Christy MD Unavailable Unavailable John Shin MD Unavailable Encounter Details Date Type Department Care Team (Late st Contact Info) Description 04/26/2020 Abstract [employer] [facility] [address] [place] [address] Abstract, Doc [facility] Social History Tobacco Use Types Packs/Day Years Used Date Smoking Tobacco: Never Smokeless Tobacco: Never Alcohol Use Standard Drinks/Week Comments No 0 (1 standard drink = 0.6 oz pur e alcohol) AUDIT-C Answer Date Recorded Frequency of Alcohol Consumption Never 04/03/2019 Average Number of Drinks Not on file 019 Frequency of Binge Drinking Not on file 03/25 Comments No Sex and Gender Information Value Date Recorded Sex Assigned at Female 12/29/2024 6:33 PM CDT Legal Sex Female 7:18 PM CDT Gender Identity Not on file Sexual Orientation Not on file COVID-19 Exposure Response Date Recorded In the last month, have you been in contact with someone who was confirmed or suspected to have Coronavirus / COVID-19? No / Unsure 04/20/2020 9:30 AM CDT documented as of this encounter Plan of Treatment Not on file documented as of this encounter Visit Diagnoses Not on filedocumented in this encounter Additional Health Concerns Infection Onset Date Last Indicated Resolved Time COVID-19 Rule Out 06/18/2020 06/18/2020 06/19/2020 12:46 PM CDT COVID-19 Rule Out 07/15/2020 07/15/2020 07/17/2020 8:[address] SQL DEVELOPER COVID-19 Rule Out 01/20/2021 01/20/2021 01/20/2021 7:32 PM CDT COVID-19 Rule Out 07/01/2021 07/01/2021 07/01/2021 8:[address] SQL DEVELOPER COVID-19 Rule Out 08/14/2021 08/14/2021 08/14/2021 10:[address] SQL DEVELOPER documented as of this encounter Care Teams Raw Finish Mill Operator Relationship Specialty Start Date End Date Melquiades Gates MD PCP - General FAMILY PRACTICE 02/17/19 05/09/20 Keven Parrish MD [address] [place] [address] PCP - General FAMILY PRACTICE 05/10/20 Felice Christy MD [address] Tutorial Laboratory Supervisor INTERVENTIONAL CARDIOLOGY 05/22/20 John Shin MD [address] [place] [phone] Bariatric Aquatics Coordinator SURGERY 07/01/21 documented as of this encounter
--- OUTSIDE RECORDS SUMMARY | 2025-04-28 13:19 | XMS_ITS | Encounter Summary ---
Author Organization [facility] Address [address] [place] [address] Care Team Providers Care Gas Meter Checker Name Role Phone Melquiades Gates MD Primary Care Provider Keven Parrish MD Primary Care Provider Encounter Details Date Type Department Care Team (Late st Contact Info) Description 05/08/2020 [facility] [address] [place] [address] Annette Hall DO [address] [place] [address] Social History Tobacco Use Types Packs/Day Years Used Date Smoking Tobacco: Former Cigarettes Q uit: 2012 Smokeless Tobacco: Never Alcohol Use Standard Drinks/Week Comments No 0 (1 standard drink = 0.6 oz pur e alcohol) Comments No Sex and Gender Information Value Date Recorded Sex Assigned at Not on file Legal Sex Female 5:46 AM PAPER REWINDER OPERATOR Gender Identity Not on file Sexual Orientation [...] on filedocumented in this encounter Care Teams Gas Meter Checker Relationship Specialty Start Date End Date Melquiades Gates MD [address] [place] [phone] PCP - General 03/01/19 08/09/20 Keven Parrish MD [address] [place] [phone] PCP - General 08/10/20 documented as of this encounter
--- OUTSIDE RECORDS SUMMARY | 2025-04-28 13:19 | XMS_ITS | Clinical Summary ---
Author Organization [facility] Address [address] [place] [phone] Care Team Providers Care Contract Manager Name Role Phone Melquiades Gates MD Primary Care Provider [phone] Allergies Active Allergy Reactions Criticality Noted Date [...] ATTACHED FOR DETAILED DIRECTIONS 4 Active methen-m.blue-s .suyb-wfzfy-dnc (UribeL) 118-10-40.8-36 mg capsule Take 118 mg by mouth every 8 (eight) hours as needed Active multivit nwmswixv-khbx-B A-calcium (THERA-M) 9 mg iron-400 mcg tablet [...] (10/31/2023): Added automatically from request for surgery [id number] Obstructive uropathy 12/21/2022 Right flank pain 12/21/2022 Overview (10/31/2023): Added automatically from request for surgery [id number] Right ureteral stone 12/21/2022 Overview (10/31/2023): Added automatically from request for surgery [id number] Acne vulgaris 10/31/2020 Overview (10/31/2023): Last Assessment [...] on file Legal Sex Female 9:17 PM CORE MAKER HELPER Gender Identity Not on file Sexual Orientation Not on file Obstetrics History Last Filed Vital Signs Vital Sign Reading Time Taken Comments Blood Pressure 120/72 10/31/2023 3:33 PM CORE MAKER HELPER Pulse 86 10/31/2023 3:33 PM CORE MAKER HELPER Temperature 36.8 C (98.3 F) 10/31/2023 3:33 PM CORE MAKER HELPER Respiratory Rate 16 10/31/2023 3:33 PM CORE MAKER HELPER Oxygen Saturation 99% 10/31/2023 3:33 PM CORE MAKER HELPER Inhaled Oxygen Concentration - - Weight 88.5 kg (195 lb) 10/31/2023 3:33 PM CORE MAKER HELPER Height 180.3 cm (5' 11) 10/31/2023 3:33 PM CORE MAKER HELPER Body Mass Index 27.2 10/31/2023 3:33 PM CORE MAKER HELPER Plan of Treatment Health Maintenance Due Date Last Done Comments Cervical Cancer Screening 1992 Depression Screening 1992 Hepatitis C Screening 1992 Meningococcal B Vaccine (1 o f 4 - Increased Risk) 2002 Varicella Vaccines (1 of 2 - 13+ 2-dose series) 2005 Hepatitis B Screening 2010 Regular Well Visit/Exam 18-64 2010 HPV Vaccines (1 - 3-dose SCD M series) 2019 Covid-19 Vaccine (3 - 2024-2 6 season) 2025 12/08/2020, 11/10/2020 Influenza Vaccine (#1) 2025 9, 10/07/2018, 06/07/2017, Additional history exists DTaP/Tdap/Td Vaccine (2 - Td or Tdap) 06/06/2027 06/06/2017 Pneumococcal vaccine <65 (4 of 4 - PCV20 or PCV21) 2042 09/10/2017, 09/08/2015, 09/08/2015 Insurance [facility] [place] [place] [address] [place] [address] Care Teams Contract Manager Relationship Specialty Start Date End Date Melquiades Gates MD PCP - General Family Medicine 10/29/19
--- OUTSIDE RECORDS SUMMARY | 2025-04-28 13:19 | XMS_ITS | Encounter Summary ---
Author Organization [facility] Address [facility] [place] [address] Care Team Providers Care Habilitation Assistant Name Role Phone Melquiades Gates MD Primary Care Provider [phone] Keven Parrish MD Primary Care Provider Felice Christy MD Unavailable Unavailable John Shin MD Unavailable Encounter Details Date Type Department Care Team ([facility] st Contact Info) Description 01/30/2019 Abstract [facility] [address] [place] [address] , Generic Conversion, Social History Tobacco Use Types Packs/Day Years Used Date Smoking Tobacco: Never Assessed Comments Unknown Sex and Gender Information Value Date Recorded Sex Assigned at Female 12/29/2024 6:33 PM CDT Legal Sex Female 7:18 PM CDT Gender Identity Not on file Sexual Orientation Not on file documented as of this encounter Plan of Treatment Not on file documented as of this encounter Visit Diagnoses Not on filedocumented in this encounter Additional Health Concerns Infection Onset Date Last Indicated Resolved Time COVID-19 Rule Out 06/18/2020 06/18/2020 06/19/2020 12:46 PM CDT COVID-19 Rule Out 07/15/2020 07/15/2020 07/17/2020 8:46 AM FORENSIC AUDIT EXPERT COVID-19 Rule Out 01/20/2021 01/20/2021 01/20/2021 7:32 PM CDT COVID-19 Rule Out 07/01/2021 07/01/2021 07/01/2021 8:52 PM FORENSIC AUDIT EXPERT COVID-19 Rule Out 08/14/2021 08/14/2021 08/14/2021 10:50 PM FORENSIC AUDIT EXPERT documented as of this encounter Care Teams Habilitation Assistant Relationship Specialty Start Date End Date Melquiades Gates MD PCP - General FAMILY PRACTICE 02/17/19 05/09/20 Keven Parrish MD [address] [place] [address] PCP - General FAMILY PRACTICE 05/10/20 Felice Christy MD [address] Fx Artist INTERVENTIONAL CARDIOLOGY 05/22/20 John Shin MD [address] [place] [phone] Bariatric Membership Assistant SURGERY 07/01/21 documented as of this encounter
== END 2025-04-28 13:14 | disposition home or self-care (01) ==
LOC: CHSIMG 13:14
PROVIDERS: PCP Family Medicine
DX: M54.16 Radiculopathy, lumbar region (principal); M47.896 Other spondylosis, lumbar region
CPT/HCPCS: 72148